=== PATIENT | female | born 1970 | race Caucasian/White ===

== ENCOUNTER 2020-09-26 17:31 | Outpatient (REF) | payer OTHER, SELFPAY ==
[2020-09-26 22:08] LABS: Abs Immature Grans 0.03 10^3/uL (0.0-0.06); Absolute Basophil Count 0.06 10^3/uL (0.0-0.2); Absolute Lymphocyte Count 2.97 10^3/uL (1.2-3.4); Absolute Monocyte Count 0.51 10^3/uL (0.1-0.8); Absolute Neutrophil Count 5.63 10^3/uL (1.2-6.7); Basophils % 0.6; Eosinophils % 2.1; HCT 43.7 % (36.0-46.0); HGB 14.4 g/dL (11.2-15.7); Immature Grans % 0.3; Lymphocytes % 31.6; MCH 29.1 pg (27.0-33.0); MCV 88.5 fL (80-95); MPV 12.7 fL (8.0-11.0); Monocytes % 5.4; Nucleated RBC 0 %; Platelet Count 246 10^3/uL (130-400); RBC 4.94 10^6/uL (3.93-5.22); RDW 12.6 % (11.7-14.6); RDW-SD 40.9 fL
[2020-09-26 22:21] LABS: Hemoglobin A1C 5.8 % (<5.7)
[2020-09-26 22:29] LABS: ALT 36 U/L (14-59); AST 21 U/L (15-37); Albumin 3.9 g/dL (3.4-5.0); Alkaline Phosphatase 86 U/L (46-116); Anion Gap 10.9 mmol/L (3-11); BUN 10 mg/dL (7-18); Bilirubin, Total 0.4 mg/dL (0.2-1.0); CO2 26.1 mmol/L (21.0-32.0); CREATININE 0.9 mg/dL (0.55-1.02); Calcium 8.9 mg/dL (8.5-10.1); Calculated LDL 166 mg/dL (<100); Chloride 106 mmol/L (98-107); Cholesterol 239 mg/dL (<200); Glucose 84 mg/dL (74-106); HDL Cholesterol 44 mg/dL (40-60); Potassium 4.1 mmol/L (3.5-5.1); Sodium 143 mmol/L (136-145); TSH (W/Ref FT4) 2.18 uIU/mL (0.36-3.74); Total Protein 7.6 g/dL (6.4-8.2); Triglyceride 148 mg/dL (<150)
[2020-09-28 10:32] LABS: Hepatitis C Ab w Rflx HCV PCR Negative (Negative)
[2020-09-28 10:40] LABS: HIV-1/2 Ag & Ab Screen Negative (Negative)
== END 2020-09-26 17:32 | disposition home or self-care (01) ==
LOC: NCHCN 17:31
PROVIDERS: PCP Family Medicine; Visit Provider Nurse Practitioner Family
DX: Z00.00 Encounter for general adult medical examination without abnormal findings (principal); R63.5 Abnormal weight gain; Z11.4 Encounter for screening for human immunodeficiency virus [HIV]; Z13.1 Encounter for screening for diabetes mellitus; Z11.59 Encounter for screening for other viral diseases; Z13.220 Encounter for screening for lipoid disorders
CPT/HCPCS: 80053; 80061; 86803; 87389; 83036; 84443; 85025

== ENCOUNTER 2020-12-12 21:57 | Outpatient (REF) | payer OTHER, SELFPAY ==
[2020-12-12 22:18] LABS: Anion Gap 9.9 mmol/L (3-11); BUN 8 mg/dL (7-18); CO2 27.1 mmol/L (21.0-32.0); CREATININE 0.9 mg/dL (0.55-1.02); Calcium 9.1 mg/dL (8.5-10.1); Chloride 105 mmol/L (98-107); Glucose 85 mg/dL (74-106); Potassium 4.1 mmol/L (3.5-5.1); Sodium 142 mmol/L (136-145)
== END 2020-12-12 21:58 | disposition home or self-care (01) ==
LOC: NCHCN 21:57
PROVIDERS: PCP Family Medicine; Visit Provider Nurse Practitioner Family
DX: R03.0 Elevated blood-pressure reading, without diagnosis of hypertension (principal)
CPT/HCPCS: 80048

== ENCOUNTER 2021-02-14 19:30 | Outpatient (REF) | payer OTHER, SELFPAY ==
[2021-02-14 22:28] LABS: Anion Gap 10.1 mmol/L (3-11); BUN 15 mg/dL (7-18); CO2 28.9 mmol/L (21.0-32.0); CREATININE 0.9 mg/dL (0.55-1.02); Calcium 9.2 mg/dL (8.5-10.1); Chloride 103 mmol/L (98-107); Folate > 20.0 ng/mL (8.6-20.0); Glucose 94 mg/dL (74-106); Potassium 3.7 mmol/L (3.5-5.1); Sodium 142 mmol/L (136-145); Vitamin B12 421 pg/mL (193-986)
== END 2021-02-14 19:31 | disposition home or self-care (01) ==
LOC: NCHCN 19:30
PROVIDERS: PCP Family Medicine; Referring Provider Nurse Practitioner Family; Visit Provider Nurse Practitioner Family
DX: I10 Essential (primary) hypertension (principal); G62.9 Polyneuropathy, unspecified
CPT/HCPCS: 80048; 82607; 82746

== ENCOUNTER 2021-07-04 16:47 | Outpatient (REF) | payer OTHER, SELFPAY ==
[2021-07-04 15:33] LABS: Hemoglobin A1C 5.9 % (<5.7)
[2021-07-04 15:37] LABS: ALT 25 U/L (14-59); AST 15 U/L (15-37); Albumin 3.7 g/dL (3.4-5.0); Alkaline Phosphatase 80 U/L (46-116); Anion Gap 9.3 mmol/L (3-11); BUN 11 mg/dL (7-18); Bilirubin, Total 0.4 mg/dL (0.2-1.0); CO2 27.7 mmol/L (21.0-32.0); CREATININE 0.9 mg/dL (0.55-1.02); Chloride 103 mmol/L (98-107); Glucose 98 mg/dL (74-106); Potassium 3.9 mmol/L (3.5-5.1); Sodium 140 mmol/L (136-145); Total Protein 7.2 g/dL (6.4-8.2)
[2021-07-06 09:13] LABS: IgA 1110 mg/dL (85-499); Interpretation (See Note); Tissue Transglutaminase IgA <1.2 U/mL (<4.0)
== END 2021-07-04 16:48 | disposition home or self-care (01) ==
LOC: NCHCN 16:47
PROVIDERS: PCP Family Medicine; Visit Provider Family Medicine
DX: R73.03 Prediabetes (principal); K59.09 Other constipation
CPT/HCPCS: 80053; 82784; 83516; 83036

== ENCOUNTER 2021-07-31 12:44 | Outpatient (REF) | payer OTHER, SELFPAY ==
[2021-08-01 09:43] LABS: IgA 1107 mg/dL (85-499)
== END 2021-07-31 12:45 | disposition home or self-care (01) ==
LOC: NCHCN 12:44
PROVIDERS: PCP Family Medicine; Visit Provider Family Medicine
DX: K59.09 Other constipation (principal); Z00.01 Encounter for general adult medical examination with abnormal findings
CPT/HCPCS: 82784

== ENCOUNTER 2021-08-04 20:51 | Outpatient (REF) | payer OTHER, SELFPAY ==
[2021-08-04 21:45] LABS: C-Reactive Protein 0.11 mg/dL (0.0-0.3); TSH (W/Ref FT4) 1.07 uIU/mL (0.36-3.74)
[2021-08-04 21:53] LABS: Abs Immature Grans 0.03 10^3/uL (0.0-0.06); Absolute Basophil Count 0.06 10^3/uL (0.0-0.2); Absolute Eosinophil Count 0.13 10^3/uL (0.0-0.7); Absolute Lymphocyte Count 2.78 10^3/uL (1.2-3.4); Absolute Neutrophil Count 5.35 10^3/uL (1.2-6.7); Basophils % 0.7; Eosinophils % 1.5; HCT 48.1 % (36.0-46.0); HGB 15.8 g/dL (11.2-15.7); Immature Grans % 0.3; Lymphocytes % 31.8; MCH 29.5 pg (27.0-33.0); MCHC 32.8 % (32.0-36.0); MCV 89.7 fL (80-95); MPV 13.7 fL (8.0-11.0); Monocytes % 4.6; Neutrophils % 61.1; Nucleated RBC 0 %; Platelet Count 256 10^3/uL (130-400); RBC 5.36 10^6/uL (3.93-5.22); RDW 12.9 % (11.7-14.6); RDW-SD 42.5 fL; WBC 8.75 10^3/uL (4.4-10.8)
[2021-08-04 22:02] LABS: Diff Comment Agrees w/ Instrument; RBC Morphology Normal
[2021-08-06 16:24] LABS: Rheumatoid Factor <8.6 IU/mL (<12.0)
[2021-08-07 10:51] LABS: HIV-1/2 Ag & Ab Screen Negative (Negative)
[2021-08-07 10:52] LABS: Cyclic Citrullinated Peptide <2.5 U/mL (<5.0)
[2021-08-07 12:49] LABS: HCV RNA Qualitative Undetected (Undetected)
[2021-08-07 13:27] LABS: ANA Interpretation Negative (Negative)
== END 2021-08-04 20:52 | disposition home or self-care (01) ==
LOC: NCHCN 20:51
PROVIDERS: PCP Family Medicine; Visit Provider Family Medicine
DX: R53.83 Other fatigue (principal); I10 Essential (primary) hypertension; R79.89 Other specified abnormal findings of blood chemistry; Z11.4 Encounter for screening for human immunodeficiency virus [HIV]; Z11.59 Encounter for screening for other viral diseases; Z78.0 Asymptomatic menopausal state
CPT/HCPCS: 86200; 87389; 87522; 84443; 85025; 86038; 86140; 86431

== ENCOUNTER 2021-08-12 10:35 | Emergency (ER) | payer OTHER, SELFPAY ==
[2021-08-12 10:40] VITALS: BP 161/61; PULSE 84; RESP 16; TEMP 36.4; O2SAT 97
[2021-08-12 10:52] LABS: Bilirubin Negative (Negative); Blood Negative (Negative); Clarity Clear (Clear); Glucose Negative (Negative); Ketones Negative (Negative); Leukocyte Esterase Negative (Negative); Nitrite Negative (Negative); Specific Gravity 1.025 (1.005-1.025); Urobilinogen 0.2 EU/dL (Up TO 0.2)
[2021-08-12 11:11] LABS: Abs Immature Grans 0.01 10^3/uL (0.0-0.06); Absolute Basophil Count 0.06 10^3/uL (0.0-0.2); Absolute Eosinophil Count 0.16 10^3/uL (0.0-0.7); Absolute Lymphocyte Count 2.48 10^3/uL (1.2-3.4); Absolute Monocyte Count 0.36 10^3/uL (0.1-0.8); Absolute Neutrophil Count 3.93 10^3/uL (1.2-6.7); Basophils % 0.9; Eosinophils % 2.3; HCT 44.9 % (36.0-46.0); HGB 14.4 g/dL (11.2-15.7); Immature Grans % 0.1; Lymphocytes % 35.4; MCHC 32.1 % (32.0-36.0); MCV 90.5 fL (80-95); MPV 10.8 fL (8.0-11.0); Monocytes % 5.1; Neutrophils % 56.2; Nucleated RBC 0 %; Platelet Count 227 10^3/uL (130-400); RBC 4.96 10^6/uL (3.93-5.22); RDW 12.7 % (11.7-14.6); RDW-SD 42.4 fL
--- NOTE | 2021-08-12 11:15 | RT.EKG_ITS ---
APPROVED REPORT Exam: Resting ECG Reason for Exam: sob Patient Location: E HR:74 bpm ECG Measurements Heart Rate 74 AXIS OK 201 P 41 QRSd 104 QRS 93 QT 409 T 71 QTc 453 Conclusion Sinus rhythm...normal P axis, V-rate 60- 99 sinus rhythm, normal axis, non ischemic
[2021-08-12] MEDS: Normal Saline 1,000 ML 1000 ML IV (11:25)
[2021-08-12 11:32] LABS: ALT 34 U/L (14-59); AST 19 U/L (15-37); Albumin 3.4 g/dL (3.4-5.0); Alkaline Phosphatase 85 U/L (46-116); Anion Gap 7.4 mmol/L (3-11); BUN 10 mg/dL (7-18); Bilirubin, Total 0.4 mg/dL (0.2-1.0); CO2 28.6 mmol/L (21.0-32.0); CREATININE 1.1 mg/dL (0.55-1.02); Calcium 8.6 mg/dL (8.5-10.1); Chloride 105 mmol/L (98-107); Estimated GFR 52.16 (mL/min/1.73m2); Glucose 134 mg/dL (74-106); Lipase 95 U/L (73-393); Potassium 3.6 mmol/L (3.5-5.1); Sodium 141 mmol/L (136-145); Total Protein 7.3 g/dL (6.4-8.2)
--- NOTE | 2021-08-12 11:33 | ED.GENADUL_ITS ---
Discharge Plan Disposition Patient Disposition: HOME Condition: Stable Discharge Details Clinical Impression: Abdominal pain Primary Care Provider: Melani Gamino ED Provider: Waqar Willoughby Home Meds and New Rx's Prescriptions: Continued magnesium oxide 400 mg magnesium capsule 400 mg PO BID 0RF glucosamine HCl 1,500 mg tablet 1,500 mg PO DAILY 0RF Rx Instructions: administer with a meal [id number] Tablet 1 tab PO DAILY 0RF hydrochlorothiazide 12.5 mg Tablet 12.5 mg PO DAILY 0RF Discharge Instructions Instructions: Abdominal Pain (ED) Additional Instructions: Work-up in the ER does not reveal any obvious emergent process or clear etiology of your symptoms. I do recommend taking a stool softener daily. Plenty of fluids to avoid dehydration. Please watch for new or worsening symptoms and return to the ER for any concerns. I do recommend contacting your primary care provider on Saturday to discuss your ER visit need for outpatient reevaluation. Discharge Data Discharge Date/Time-TO BE ENTERED AT DEPARTURE: 08/12/21 14:35 Medical Decision Making This is a 51-year-old female who presents to the ER reporting ongoing symptoms for approximately 2 months, worsening abdominal pain over the past couple of days, chronic constipation, and multitude of complaints that across multiple review of systems. She is in the process of trying to have this evaluated through her primary care provider, concern for possible autoimmune disorder but no clear etiology. Clinically she appears well, nontoxic, hemodynamically stable, abdomen is soft, nonsurgical, in no acute distress. Plan is to obtain IV access, give IV fluid and will obtain medical screening laboratory values including EKG and troponin given her shortness of breath, a Covid swab, and plan to obtain CT imaging of her abdomen pelvis for ongoing discomfort. Patient is comfortable this plan and has no additional questions or concerns at this time. Laboratory values reveal no evidence of leukocytosis or anemia. D-dimer is unremarkable at 401. Will not pursue CTA of the chest. Lactate is minimally elevated at 1.6, patient given a second liter, at this time lactated Ringer's. Electrolytes unremarkable, creatinine one-point motor GFR 2.16. LFTs unremarkable. Troponin less than 50, BNP 56. Urinalysis unremarkable. Covid negative. Laboratory values are grossly unremarkable. No clear etiology of her ongoing symptoms. Patient was witnessed ambulating to the restroom multiple times without difficulty. Awaiting CT. CT imaging of the abdomen and pelvis are unremarkable. Discussed benign laboratory values and CT imaging with patient. She is relieved although frustrated as there is no clear etiology of her ongoing symptoms. We d id discuss with her chronic constipation that she may want to increase her stool softener to a daily use. Standard discharge and return precautions were provided. Lastly, we discussed the importance of contacting her primary care provider to discuss her ER evaluation, the need for outpatient reevaluation and the potential for referral to specialty clinic if her symptoms are to persist and there is no clear etiology. This documentation was generated using [employer] system, please disregard any oddities of phrase or misspellings. Medical Records Medical records reviewed: Yes I reviewed the patient's medical records. Imaging Data Radiologic Study: Attestation: I personally reviewed and interpreted this imaging study as follows: Imaging: CT Scan Radiologist's impression: Exam(s) CT ABDOMEN PELVIS W EXAM: CT ABDOMEN PELVIS W CLINICAL HISTORY: L sided pain, constipation. TECHNIQUE: Imaging Protocol: Axial computed tomography images with coronal and sagittal reformatted images were created and reviewed CONTRAST MATERIAL: Intravenous: Omnipaque 100cc Oral: None COMPARISON: No exams were available for comparison FINDINGS: VISUALIZED LUNG BASES: No nodules nor pleural effusions evident. ABDOMEN: There is no ascites. LIVER: There are no focal hepatic lesions evident . GALLBLADDER/BILIARY: No obvious gallbladder pathology. CBD is not dilated. PANCREAS: No evidence of pancreatic mass nor dilatation of the pancreatic duct. SPLEEN: Spleen size is normal. There is a peripheral subcapsular 7 millimeter hypodensity in the spleen which is probably a small hemangioma. (Series 4/image 14). Splenic and portal veins are patent. ADRENALS: There are no significant adrenal masses. KIDNEYS:No cysts evident. No solid renal masses. No calculi nor hydronephrosis.. ABDOMINAL AORTA: Abdominal aorta is not enlarged. LYMPH NODES:There is no retroperitoneal nor paraaortic adenopathy. ABDOMINAL WALL: No evidence of significant anterior abdominal wall nor inguinal hernia. GI: There is no evidence of bowel obstruction, free air, nor abscess. PELVIS: GI: No evidence of appendicitis.There are few scattered sigmoid diverticuli but no evidence of obvious acute diverticulitis. LYMPH NODES: There is no intrapelvic nor inguinal adenopathy. REPRODUCTIVE: Uterus and adnexal regions appear unremarkable. No free fluid URINARY BLADDER: No calculi nor obvious masses evident OSSEOUS: No significant osseous lesions. IMPRESSION: 1. No significant acute findings in the abdomen and pelvis. No evidence of appendicitis. 2. Few scattered sigmoid diverticulae but no evidence of acute diverticulit Lab Data Lab results reviewed: Yes I reviewed the patient's lab results. Labs: Laboratory Tests Range/Units 08/12/21 08/12/21 08/12/21 10:42 10:55 10:55 WBC (4.4-10.8) 10^3/uL 7.00 RBC (3.93-5.22) 10^6/uL 4.96 Hgb (11.2-15.7) g/dL 14.4 Hct (36.0-46.0) % 44.9 MCV (80-95) fL 90.5 MCH (27.0-33.0) pg 29.0 MCHC (32.0-36.0) % 32.1 RDW (11.7-14.6) % 12.7 Plt Count (130-400) 10^3/uL 227 MPV (8.0-11.0) fL 10.8 Immature Gran % 0.1 Neutrophils % 56.2 Lymphocytes % 35.4 Monocytes % 5.1 Eosinophils % 2.3 Basophils % 0.9 Nucleated RBC % % 0 Absolute Neutrophils (1.2-6.7) 10^3/uL 3.93 Absolute Lymphocytes (1.2-3.4) 10^3/uL 2.48 Absolute Monocytes (0.1-0.8) 10^3/uL 0.36 Absolute Eosinophils (0.0-0.7) 10^3/uL 0.16 Absolute Basophils (0.0-0.2) 10^3/uL 0.06 D-Dimer (<500) ng/mlFEU VBG Lactate (0.6-1.4) mmol/L Sodium (136-145) mmol/L 141 Potassium (3.5-5.1) mmol/L 3.6 Chloride (98-107) mmol/L 105 Carbon Dioxide (21.0-32.0) mmol/L 28.6 Anion Gap (3-11) mmol/L 7.4 BUN (7-18) mg/dL 10 Creatinine (0.55-1.02) mg/dL 1.1 H Estimated GFR/1.73 m2 (mL/min/1.73m2) 52.16 Glucose (74-106) mg/dL 134 H Calcium (8.5-10.1) mg/dL 8.6 Total Bilirubin (0.2-1.0) mg/dL 0.4 AST (15-37) U/L 19 ALT (14-59) U/L 34 Alkaline Phosphatase (46-116) U/L 85 Troponin I (<or=60) ng/L NT-Pro-B Natriuret Pep (<300) pg/mL Total Protein (6.4-8.2) g/dL 7.3 Albumin (3.4-5.0) g/dL 3.4 Lipase (73-393) U/L 95 Urine Color (Yellow) Yellow Urine Clarity (Clear) Clear Urine pH (5-8) 6.0 Ur Specific [place] (1.005-1.025) 1.025 Urine Protein (Negative) mg/dL Negative Urine Ketones (Negative) mg/dL Negative Urine Blood (Negative) Negative Urine Nitrite (Negative) Negative Urine Bilirubin (Negative) Negative Urine Urobilinogen (Up TO 0.2) EU/dL 0.2 Ur Leukocyte Esterase (Negative) Negative Urine Glucose (Negative) mg/dL Negative COVID-19 Source SARS-CoV-2 (PCR) (Negative) Range/Units 08/12/21 08/12/21 08/12/21 10:55 11:38 11:38 WBC (4.4-10.8) 10^3/uL RBC (3.93-5.22) 10^6/uL Hgb (11.2-15.7) g/dL Hct (36.0-46.0) % MCV (80-95) fL MCH (27.0-33.0) pg MCHC (32.0-36.0) % RDW (11.7-14.6) % Plt Count (130-400) 10^3/uL MPV (8.0-11.0) fL Immature Gran % Neutrophils % Lymphocytes % Monocytes % Eosinophils % Basophils % Nucleated RBC % % Absolute Neutrophils (1.2-6.7) 10^3/uL Absolute Lymphocytes (1.2-3.4) 10^3/uL Absolute Monocytes (0.1-0.8) 10^3/uL Absolute Eosinophils (0.0-0.7) 10^3/uL Absolute Basophils (0.0-0.2) 10^3/uL D-Dimer (<500) ng/mlFEU 401 VBG Lactate (0.6-1.4) mmol/L 1.6 H Sodium (136-145) mmol/L Potassium (3.5-5.1) mmol/L Chloride (98-107) mmol/L Carbon Dioxide (21.0-32.0) mmol/L Anion Gap (3-11) mmol/L BUN (7-18) mg/dL Creatinine (0.55-1.02) mg/dL Estimated GFR/1.73 m2 (mL/min/1.73m2) Glucose (74-106) mg/dL Calcium (8.5-10.1) mg/dL Total Bilirubin (0.2-1.0) mg/dL AST (15-37) U/L ALT (14-59) U/L Alkaline Phosphatase (46-116) U/L Troponin I (<or=60) ng/L < 50 NT-Pro-B Natriuret Pep (<300) pg/mL 56 Total Protein (6.4-8.2) g/dL Albumin (3.4-5.0) g/dL Lipase (73-393) U/L Urine Color (Yellow) Urine Clarity (Clear) Urine pH (5-8) Ur Specific [place] (1.005-1.025) Urine Protein (Negative) mg/dL Urine Ketones (Negative) mg/dL Urine Blood (Negative) Urine Nitrite (Negative) Urine Bilirubin (Negative) Urine Urobilinogen (Up TO 0.2) EU/dL Ur Leukocyte Esterase (Negative) Urine Glucose (Negative) mg/dL COVID-19 Source SARS-CoV-2 (PCR) (Negative) Range/Units 08/12/21 11:40 WBC (4.4-10.8) 10^3/uL RBC (3.93-5.22) 10^6/uL Hgb (11.2-15.7) g/dL Hct (36.0-46.0) % MCV (80-95) fL MCH (27.0-33.0) pg MCHC (32.0-36.0) % RDW (11.7-14.6) % Plt Count (130-400) 10^3/uL MPV (8.0-11.0) fL Immature Gran % Neutrophils % Lymphocytes % Monocytes % Eosinophils % Basophils % Nucleated RBC % % Absolute Neutrophils (1.2-6.7) 10^3/uL Absolute Lymphocytes (1.2-3.4) 10^3/uL Absolute Monocytes (0.1-0.8) 10^3/uL Absolute Eosinophils (0.0-0.7) 10^3/uL Absolute Basophils (0.0-0.2) 10^3/uL D-Dimer (<500) ng/mlFEU VBG Lactate (0.6-1.4) mmol/L Sodium (136-145) mmol/L Potassium (3.5-5.1) mmol/L Chloride (98-107) mmol/L Carbon Dioxide (21.0-32.0) mmol/L Anion Gap (3-11) mmol/L BUN (7-18) mg/dL Creatinine (0.55-1.02) mg/dL Estimated GFR/1.73 m2 (mL/min/1.73m2) Glucose (74-106) mg/dL Calcium (8.5-10.1) mg/dL Total Bilirubin (0.2-1.0) mg/dL AST (15-37) U/L ALT (14-59) U/L Alkaline Phosphatase (46-116) U/L Troponin I (<or=60) ng/L NT-Pro-B Natriuret Pep (<300) pg/mL Total Protein (6.4-8.2) g/dL Albumin (3.4-5.0) g/dL Lipase (73-393) U/L Urine Color (Yellow) Urine Clarity (Clear) Urine pH (5-8) Ur Specific [place] (1.005-1.025) Urine Protein (Negative) mg/dL Urine Ketones (Negative) mg/dL Urine Blood (Negative) Urine Nitrite (Negative) Urine Bilirubin (Negative) Urine Urobilinogen (Up TO 0.2) EU/dL Ur Leukocyte Esterase (Negative) Urine Glucose (Negative) mg/dL COVID-19 Source Nasal/Nares SARS-CoV-2 (PCR) (Negative) Negative ECG Data Attestation: I personally reviewed and interpreted this ECG (s) as follows: Interpretation: Sinus rhythm, ventricular rate of 74, no STEMI HPI General Mode of arrival: ambulatory . Date/Time Provider Initiated Documentation: 08/12/21 10:52 . Limitations to Documentation: no limitations . Information obtained by: patient . HPI Narrative: This is a 51-year-old female, denies significant past medical history, presents to the ER today with a multitude of complaints but primarily complaining of left-sided abdominal pain acute on chronic for the past 2 months, worse over the past couple of days. Over the past 2 months she reports intermittent headaches, occasional shortness of breath, left-sided abdominal pain and generalized weakness, chronic constipation, going up to 3 weeks without a bowel movement, reports feeling mentally foggy, occasionally having tingling in her feet. She denies recent illness or trauma, fever, neck pain, visual changes, chest pain, cough, nausea, vomiting, change in appetite, constipation or black tarry stools or bright red blood in her stools. Patient states that she has been seen by her primary care provider multiple times, had laboratories drawn, feels as though there may be an autoimmune etiology but no clear diagnosis thus far. She states that she takes stool softeners once a week or so. She also reports that her hands are slightly more red than usual which typically indicates that she is dehydrated and is requesting IV fluid. Related Data Home Medications Medication Instructions Recorded Confirmed glucosamine HCl 1,500 mg tablet 1,500 mg PO DAILY 10/27/20 08/12/21 magnesium oxide 400 mg PO BID 10/27/20 08/12/21 hydrochlorothiazide 12.5 mg tablet 12.5 mg PO DAILY 08/12/21 08/12/21 [id number]-[id number] tablet 1 tab PO DAILY 08/12/21 08/12/21 Allergies Allergy/AdvReac Type Severity Reaction Status Date / Time lisinopril Allergy Severe unknown Verified 08/12/21 10:47 phenazopyridine Allergy Severe unknown Verified 08/12/21 10:47 [From Pyridium] [email or web address] [From Myrbetriq] Allergy Intermediate unknown Verified 08/12/21 10:47 gabapentin [From Neurontin] Allergy Mild unknown Verified 08/12/21 10:47 penicillin V Allergy Mild unknown Verified 08/12/21 10:47 pregabalin [From Lyrica] Allergy Mild unknown Verified 08/12/21 10:47 General Stated Complaint: Abd Prob DEREK: 3 Review of Systems Constitutional Constitutional: Reports fatigue, Denies fever(s), Reports headache(s) and Denies weakness ENT Ears, Nose, Mouth, and Throat: Reports headache(s) and Denies neck pain Cardiovascular Cardiovascular: Denies chest pain and Reports dyspnea Respiratory Respiratory: Denies cough and Reports dyspnea Gastrointestinal Gastrointestinal: Reports abdominal pain, Denies melena, Denies hematochezia, Reports constipation, Denies diarrhea, Denies nausea and Denies vomiting Genitourinary Genitourinary: Denies dysuria Musculoskeletal Musculoskeletal: Denies back pain, Denies neck pain, Denies numbness and Denies tingling Integumentary/Breasts Skin/Breast: Denies rash Neurologic Neurologic: Reports headache(s), Denies numbness, Denies tingling and Denies weakness Endocrine Endocrine: Reports fatigue Hematologic/Lymphatic Hematologic/Lymphatic: Denies easy bleeding and Denies easy bruising PFSH All Active Problems Abdominal pain (Acute) Neuropathy (Acute) Constipation (Acute) Hot flashes (Acute) Perimenopausal (Acute) Abnormal weight gain (Acute) Interstitial cystitis (Acute) Mixed anxiety and depressive disorder (Acute) Screening for colon cancer (Acute) Medical History Plantar wart, left foot Surgical History History of cervical discectomy Social History Smoking/Tobacco Use Status: Never Smoking risk assessment performed?: Yes Substance use type: does not use Exam Const General: cooperative, healthy appearing, comfortable and no acute distress Orientation: alert, awake and oriented x3 HENMT Head: normal to inspection, normocephalic and atraumatic Face and sinus: normal facial exam Mouth: moist mucous membranes Throat: posterior oropharynx normal Eyes General: appearance normal, both eyes and all related structures Conjunctivae: conjunctivae normal Neck Neck: normal visual inspection, full ROM, no meningeal signs, trachea midline and supple Resp Effort & Inspection: normal respiratory effort and able to speak in complete sentences Auscultation: clear to auscultation bilaterally Cardio Rate: regular rate Rhythm: regular rhythm GI Inspection: normal to inspection Palpation: soft, not firm, no guarding, no pulsatile masses and nontender Auscultation: normal bowel sounds Back/Spine/Pelvis Back: No back tenderness Skin General skin exam: no rashes or lesions noted Neuro General: patient alert, patient awake, moves all extremities and no focal motor deficits Cognition: normal cognition Speech: speech normal Gait: normal gait Motor: muscle tone normal throughout Sensory Exam: no sensory deficits noted Extrem General: normal to inspection, full ROM, capillary refill normal, no pedal edema and no calf tenderness Psych Appearance: grossly normal Mental Status: mental status grossly normal Course Vital Signs Vital signs: Vital Signs Temperature 36.4 C L 08/12/21 10:40 Pulse 84 08/12/21 10:40 Respiratory Rate 16 08/12/21 10:40 Blood Pressure 161/61 H 08/12/21 10:40 Pulse Oximetry 97 08/12/21 10:40 Temperature 36.4 C L 08/12/21 10:40 Temperature Source Skin 08/12/21 10:40 Pulse 84 08/12/21 10:40 Respiratory Rate 16 08/12/21 10:40 Respiratory Effort 08/12/21 10:40 Blood Pressure 161/61 H 08/12/21 10:40 Blood Pressure Position Supine 08/12/21 10:40 Pulse Oximetry 97 08/12/21 10:40 Oxygen Delivery Method Room Air 08/12/21 10:40 Oxygen Flow Rate 0 08/12/21 10:40 Pain Level 6 08/12/21 10:40 Lab/Test Results Lab/Test Results: Laboratory Tests Range/Units 08/12/21 08/12/21 10:42 10:55 WBC (4.4-10.8) 10^3/uL 7.00 RBC (3.93-5.22) 10^6/uL 4.96 Hgb (11.2-15.7) g/dL 14.4 Hct (36.0-46.0) % 44.9 MCV (80-95) fL 90.5 MCH (27.0-33.0) pg 29.0 MCHC (32.0-36.0) % 32.1 RDW (11.7-14.6) % 12.7 Plt Count (130-400) 10^3/uL 227 MPV (8.0-11.0) fL 10.8 Immature Gran % 0.1 Neutrophils % 56.2 Lymphocytes % 35.4 Monocytes % 5.1 Eosinophils % 2.3 Basophils % 0.9 Nucleated RBC % % 0 Absolute Neutrophils (1.2-6.7) 10^3/uL 3.93 Absolute Lymphocytes (1.2-3.4) 10^3/uL 2.48 Absolute Monocytes (0.1-0.8) 10^3/uL 0.36 Absolute Eosinophils (0.0-0.7) 10^3/uL 0.16 Absolute Basophils (0.0-0.2) 10^3/uL 0.06 Urine Color (Yellow) Yellow Urine Clarity (Clear) Clear Urine pH (5-8) 6.0 Ur Specific [place] (1.005-1.025) 1.025 Urine Protein (Negative) mg/dL Negative Urine Ketones (Negative) mg/dL Negative Urine Blood (Negative) Negative Urine Nitrite (Negative) Negative Urine Bilirubin (Negative) Negative Urine Urobilinogen (Up TO 0.2) EU/dL 0.2 Ur Leukocyte Esterase (Negative) Negative Urine Glucose (Negative) mg/dL Negative POC- Test(urine) Negative
[2021-08-12 11:46] LABS: Lactate 1.6 mmol/L (0.6-1.4)
[2021-08-12 11:51] LABS: NT-proBNP 56 pg/mL (<300); Troponin I < 50 ng/L (<or=60)
[2021-08-12 12:03] LABS: Source Nasal/Nares
--- NOTE | 2021-08-12 12:15 | DI.CT_ITS ---
Exam(s) CT ABDOMEN PELVIS W EXAM: CT ABDOMEN PELVIS W CLINICAL HISTORY: L sided pain, constipation. TECHNIQUE: Imaging Protocol: Axial computed tomography images with coronal and sagittal reformatted images were created and reviewed CONTRAST MATERIAL: Intravenous: Omnipaque 100cc Oral: None COMPARISON: No exams were available for comparison FINDINGS: VISUALIZED LUNG BASES: No nodules nor pleural effusions evident. ABDOMEN: There is no ascites. LIVER: There are no focal hepatic lesions evident . GALLBLADDER/BILIARY: No obvious gallbladder pathology. CBD is not dilated. PANCREAS: No evidence of pancreatic mass nor dilatation of the pancreatic duct. SPLEEN: Spleen size is normal. There is a peripheral subcapsular 7 millimeter hypodensity in the spl een which is probably a small hemangioma. (Series 4/image 14). Splenic and portal veins are patent. ADRENALS: There are no significant adrenal masses. KIDNEYS:No cysts evident. No solid renal masses. No calculi nor hydronephrosis.. ABDOMINAL AORTA: Abdominal aorta is not enlarged. LYMPH NODES:There is no retroperitoneal nor paraaortic adenopathy. ABDOMINAL WALL: No evidence of significant anterior abdominal wall nor inguinal hernia. GI: There is no evidence of bowel obstruction, free air, nor abscess. PELVIS: GI: No evidence of appendicitis.There are few scattered sigmoid diverticuli but no evidence of obviou s acute diverticulitis. LYMPH NODES: There is no intrapelvic nor inguinal adenopathy. REPRODUCTIVE: Uterus and adnexal regions appear unremarkable. No free fluid URINARY BLADDER: No calculi nor obvious masses evident OSSEOUS: No significant osseous lesions. IMPRESSION: 1. No significant acute findings in the abdomen and pelvis. No evidence of appendicitis. 2. Few scattered sigmoid diverticulae but no evidence of acute diverticulitis 3. 4. RADIATION DOSE DELIVERED: 1,110.02mGy.cm Total DLP DATA REPOSITORY: All CT scans at this facility are submitted to the National Radiology Data Registry (NRDR) Dose Index Registry (DIR) with the [employer] ([employer]). RADIATION OPTIMIZATION: All CT scans at this facility use at least one of these dose optimization te chniques: automated exposure control; mA and/or kV adjustment per patient size (includes targeted exa ms where dose is matched to clinical indication); or iterative reconstruction.
[2021-08-12] MEDS: Lactated Ringers 1,000 ML 1000 ML IV (12:20)
[2021-08-12 12:21] LABS: D-Dimer 401 ng/mlFEU (<500)
[2021-08-12 12:44] LABS: COVID-19 PCR Negative (Negative)
[2021-08-12] MEDS: Normal Saline Flush 10 ML SYR IVP (13:22)
--- NOTE | 2021-08-12 13:58 | DI.VRAD_ITS ---
PROCEDURE INFORMATION: Exam: CT Abdomen And Pelvis With Contrast Exam date and time: 08/12/2021 1:15 PM Age: 51 years old Clinical indication: Other: Left sided pain, constipation TECHNIQUE: Imaging protocol: Computed tomography of the abdomen and pelvis with contrast. Contrast material: OMNIPAQUE 350; Contrast volume: 100 ml; Contrast route: INTRAVENOUS (IV); COMPARISON: No relevant prior studies available. FINDINGS: Liver: Normal. No mass. Gallbladder and bile ducts: Normal. No calcified stones. No ductal dilation. Pancreas: Normal. No ductal dilation. Spleen: Normal. No splenomegaly. Adrenal glands: Normal. No mass. Kidneys and ureters: Normal. No hydronephrosis. Stomach and bowel: Unremarkable. No obstruction. No mucosal thickening. No significant fecal loading. Appendix: No evidence of appendicitis. Intraperitoneal space: Unremarkable. No free air. No significant fluid collection. Vasculature: Unremarkable. No abdominal aortic aneurysm. Lymph nodes: Unremarkable. No enlarged lymph nodes. Urinary bladder: Unremarkable as visualized. Reproductive: Unremarkable as visualized. Bones/joints: Unremarkable. No acute fracture. Soft tissues: Unremarkable. IMPRESSION: No significant fecal loading. No acute abnormality. Dictated and Authenticated by: Adrianna Yanez MD. Ordering:NANCY Zavaleta MD
[2021-08-12 14:02] VITALS: BP 134/62; PULSE 68; RESP 20; TEMP 36.4; O2SAT 97
== END 2021-08-12 14:35 | disposition home or self-care (01) ==
PROVIDERS: Emergency Provider Physician Assistant; PCP Nurse Practitioner Family
DX: R10.9 Unspecified abdominal pain (principal); K59.09 Other constipation; R06.02 Shortness of breath; Z20.822 Contact with and (suspected) exposure to COVID-19
CPT/HCPCS: 36415; 80053; 81025; 83690; 87635; 93005; 96360; 96361; 99284; 99285; 74177; 81003; 83605; 83880; 84484; 85025; 85379; 93010

== ENCOUNTER 2021-08-23 02:54 | Outpatient (CLI) | payer OTHER, SELFPAY ==
[2021-08-23 10:24] LABS: Source Nasal/Nares
[2021-08-23 12:57] LABS: COVID-19 PCR Negative (Negative)
== END 2021-08-23 02:55 | disposition home or self-care (01) ==
PROVIDERS: PCP Nurse Practitioner Family; Visit Provider Surgery
DX: Z20.822 Contact with and (suspected) exposure to COVID-19 (principal)
CPT/HCPCS: 87635

== ENCOUNTER 2021-08-25 10:45 | Day surgery (SDC) | payer OTHER, SELFPAY ==
--- NOTE | 2021-08-24 15:15 | PDOC.DSDIS_ITS ---
Discharge Plan Disposition Patient Disposition: HOME Condition: Good Discharge Details Reason For Visit: stomach/colon scopes Attending Provider: Charity Hernandez Primary Care Provider: Melani Gamino Home Meds and New Rx's Prescriptions: Continued magnesium oxide 400 mg magnesium capsule 400 mg PO BID 0RF glucosamine HCl 1,500 mg tablet 1,500 mg PO DAILY 0RF Rx Instructions: administer with a meal owgyowlwnglj-orristsp-qouoyv Tablet 1 tab PO DAILY 0RF hydrochlorothiazide 12.5 mg Tablet 12.5 mg PO DAILY 0RF Discontinued bisacodyl [Dulcolax (bisacodyl)] 5 mg tablet,delayed release (DR/EC) 5 mg PO ONCE Qty: 4 0RF Rx Instructions: Take according to provider's instructions for colonoscopy prep. polyethylene glycol 3350 17 gram/dose powder 17 g PO ONCE Qty: 238 0RF Rx Instructions: To be taken as directed by prescriber's office for colonoscopy prep. Discharge Instructions Additional Instructions: [facility] Colonoscopy Post- Op Instructions Instructions for Everyone who is given Anesthesia: For your safety, please do the following for the next twenty-four (24) hours: *Do Not operate a motor vehicle (car, truck, motorcycle, etc.) *Do Not drink alcoholic beverages or use any recreational drugs for the first 24 hours or while taking pain medications. The medications in your body may have a reaction that can be dangerous. *Do Not make any important decisions or sign any important papers. Findings: EGD: small hiatal hernia/essentially normal colon: large polyp, otherwise normal -No ASA/NSAID's for 5 days expect some mild cramping may pass a small amount of blood w/ first BM. IF passing clots larger than you fist or doesn not stop- go to the ED. Follow up: 3 wks 1. No lifting over 20 pounds or strenuous activity for the first 24 hours after your procedure. After 24 hours there are no restrictions on your activity but you may feel fatigued for a few days. 2. After you arrive home you may have a light meal and return to your normal diet as you can tolerate it without feeling sick to your stomach. 3. You may have a bloated, gaseous feeling in your belly (abdomen) after a colonoscopy. Passing gas and belching will help. Walking or lying down on your l eft side with your knees flexed may relieve the discomfort. Call the office at [phone] (Office) or [phone] (Hospital) right away if you notice any of the following: a.Vomiting of blood or ?coffee ground stools?. b.Rectal bleeding 1Tbsp, blood clots or continuous bleeding. c.Severe belly (abdominal) pain. d.A hard distended belly (abdomen) and an inability to pass gas. 4. Please don?t expect to have a normal BM (bowel movement) for 2-3 days after your procedure. 5. If there are questions regarding the findings of your procedure, please contact your doctor 6. If you are unable to contact your doctor with a problem, contact the hospital at [phone]. 7. Continue all your regular medications unless directed otherwise. I understand the above instructions and have no questions. Signature of Patient or Adult Escort Name of Responsible Adult Escort Signature of Nurse Date/Time Activity:: see above Diet:: see above Discharge Orders Discharge Orders: Discharge Order (Routine); Ordered 08/24/21 Ordered By: Charity Hernandez
--- NOTE | 2021-08-24 15:16 | W.PM.ENDDOP ---
Date of service: 08/25/21 Time of Service: 12:37 Endoscopy Report DATE OF PROCEDURE: 08/25/21 PRE-OP DIAGNOSIS: abdominal pain/bloating/bx for celiac POST-OP DIAGNOSIS: other (mild duodenitis and small hiatal hernia) SURGEON: Charity Hernandez ANESTHESIA TYPE: General:No Airway PATHOLOGY: other COMPLICATIONS: None DISPOSITION: same day PREP: Miralax/Dulcolax PROCEDURE DESCRIPTION: After informed consent was obtained the patient was take to the procedure room and placed in a supine position. Monitors were applied and a time out was done. The patients name, date of , procedure type, allergies to medications and metal in their body was reviewed. A bite block was placed and the patient was sedated. Once sedated and comfortable the gastroscope was advanced through the oropharynx which was grossly normal into the esophagus. The proximal and mid-esophagus were mild feline eopsh. In the distal esophagus there was small hiatal hernia and irregularity at GE junction noted. The scope was advanced into the stomach and through the pylorus into the 3rd portion of the duodenum. The duodenum was noted to be mild irritation. Biopsies were done, all specimens are retrieved and no bleedinging is noted. The scope was retracted back into the stomach and biopsies were done to rule out H. pylori. There were no ulcers/gastritis. The scope was retroflexed. The cardia and fundus were noted to be normal. There 1cm a hiatal hernia noted. The scope was retracted back into the esophagus and biopsies were done of the GE junction to rule out Jarrett's. The Z line was irregular. The GE junction was at 38 cm. The scope was removed and the patient was woken up and taken back to [facility] in stable condition.
--- NOTE | 2021-08-24 15:17 | W.COLOREPORT ---
Colonoscopy Report Date of procedure: 08/25/21 Pre-op diagnosis general: CRC screen/hx of IBS-C Post-op diagnosis procedure note: other (lg polyps) Surgeon: Charity Hernandez Anesthesia Type: General:No Airway Estimated blood loss (mL): 1 Pathology: other Disposition: same day Prep: Miralax/Dulcolax Retraction Time: 15 mins Procedure Description: After informed consent was obtained the patient was taken to the procedure room and placed in a left decubitous position. Monitors were applied and a time out was done. The patients name, date of , procedure, allergies to medications and metal in their body was reviewed. The patient was then sedated. Once sedated and comfortable a rectal exam was done. External exam was normal. Internal exam revealed a normal sphincter tone and no palpable masses. The scope was then introduced and retrofelexed. No internal hemorrhoids were identified. The scope was then advanced to the cecum w/out difficulty. The TI and appendiceal orifice were identified. The prep was BBPS-3 in sigmoid/left adn transverse colon. BBPS-2 in right colon, for a total of 9. The scope was then slowly retracted over 15minutes back into the rectum. The colon is floppy and redundant. There are no AVM's or diverticula. The TI is intubated. The villous architecture appears preserved. Biopsies were taken in the terminal ileum, cecum, 80 cm, 60 cm, 30 cm in the rectum. There are no diverticula or AVMs visualized. She has a large polyp at 25 cm. This is removed with a hot snare and clips are applied. It is 1.5 cm and on a long stalk. The specimen is retrieved and no bleeding is noted. She has x2 small flat 5 mm polyps at 20 cm. These are removed with cold biopsy forcep. The scope was removed and the patient was woken up and taken back to [facility] day [facility] in stable condition. The patient tolerated the procedure well and there were no immediate complications. Follow up: The patient should follow up in 3 years unless they develop changes in bowel habits or other new gastrointestinal complaints.
[2021-08-25 11:01] VITALS: BP 145/70; PULSE 76; RESP 18; TEMP 36.5; O2SAT 98
[2021-08-25] MEDS: Lactated Ringers 1,000 ML 80 ML IV (11:12)
--- NOTE | 2021-08-25 11:18 | ANES.PREOP_ITS ---
General Info Date of Service Date Performed: 08/25/21 Height: 5 ft 6 in Weight: 85.8 kg Body Mass Index (BMI): 30.5 Surgical Procedure: Operation Date: 08/25/21 11:20 Proposed Procedure Side Surgeon p Colonoscopy/Gastroscopy w/Biopsies Charity Hernandez DO Meds Allergies and Home Medications Allergies Allergy/AdvReac Type Severity Reaction Status Date / Time lisinopril Allergy Severe unknown Verified 08/25/21 11:09 phenazopyridine Allergy Severe unknown Verified 08/25/21 11:09 [From Pyridium] [email or web address] [From Myrbetriq] Allergy Intermediate unknown Verified 08/25/21 11:09 gabapentin [From Neurontin] Allergy Mild unknown Verified 08/25/21 11:09 penicillin V Allergy Mild unknown Verified 08/25/21 11:09 pregabalin [From Lyrica] Allergy Mild unknown Verified 08/25/21 11:09 Home Medication Medication Instructions Recorded glucosamine HCl 1,500 mg tablet 1,500 mg PO DAILY 10/27/20 magnesium oxide 400 mg PO BID 10/27/20 hydrochlorothiazide 12.5 mg tablet 12.5 mg PO DAILY 08/12/21 wmjyg[address]y-nwvefges-pscnvb tablet 1 tab PO DAILY 08/12/21 Current Visit Medications: Current Medications Generic Name Dose Route Start Last Admin Trade Name Freq PRN Reason Stop Dose Admin Hyoscyamine Sulfate 0.125 mg 08/24/21 14:54 Hyoscyamine 0.125 Mg Sl/Oral/Chew SL 08/25/21 16:00 DIRECTED PRN Ringer's Solution 1,000 mls @ 80 mls/hr 08/25/21 06:00 08/25/21 11:12 IV 09/23/21 23:59 80 mls/hr INFUSION MARTY Administration IV Miscellaneous Supplies 1 each 08/25/21 06:00 Iv Access IV 09/23/21 23:59 DIRECTED MARTY Ondansetron HCl 4 mg 08/24/21 14:54 Ondansetron 4 Mg/2 Ml Vial IVP 08/25/21 16:00 Q4H PRN PRN Nausea / Vomiting Sodium Chloride 0 ml 08/25/21 06:00 Normal Saline Flush 10 Ml Syr IV 09/23/21 23:59 PRN PRN Sodium Chloride 0 ml 08/25/21 06:00 Normal Saline 10 Ml Vial IJ 09/23/21 23:59 DIRECTED PRN Sterile Water 0 ml 08/25/21 06:00 Water,Injection,Sterile 10 Ml Vial IJ 09/23/21 23:59 DIRECTED PRN PFSH Active Problems Active Problems: Problem Status Onset Code Screening for colon cancer Z12.11 Constipation K59.00 Abdominal pain R10.9 Abdominal bloating R14.0 Medical History Medical History Abnormal weight gain Hot flashes Interstitial cystitis Mixed anxiety and depressive disorder Neuropathy Perimenopausal Plantar wart, left foot Medical History Comments:: Father had delayed emergence issues. Surgical History Surgical History (Updated 08/25/21 @ 11:09 by Mary Kate Lombardi RN) History of cervical discectomy History of tonsillectomy and adenoidectomy Tobacco Smoking/Tobacco Use Status: Never Alcohol Alcohol Intake: current Alcohol intake frequency: holidays/special occasions only Substance Use Substance use: Never Substance use type: does not use Vital Signs and Lab Results Vital Signs Most Recent Vital Signs in EMR: Most Recent Vital Signs Temp Pulse Resp BP Pulse Ox 36.5 C 76 18 145/70 H 98 08/25/21 11:01 08/25/21 11:01 08/25/21 11:01 08/25/21 11:01 08/25/21 11:01 Lab Results Blood Type / Crossmatch: No Data to Display Complete Blood Count: White Blood Count 7.00 10^3/uL (4.4-10.8) 08/12/21 10:55 08/12/21 Red Blood Count 4.96 10^6/uL (3.93-5.22) 08/12/21 10:55 08/12/21 Hemoglobin 14.4 g/dL (11.2-15.7) 08/12/21 10:55 08/12/21 Hematocrit 44.9 % (36.0-46.0) 08/12/21 10:55 08/12/21 Platelet Count 227 10^3/uL (130-400) 08/12/21 10:55 08/12/21 Venous Blood Lactate 1.6 mmol/L (0.6-1.4) H 08/12/21 11:38 08/12/21 Complete Metabolic Panel: Sodium Level 141 mmol/L (136-145) 08/12/21 10:55 08/12/21 Potassium Level 3.6 mmol/L (3.5-5.1) 08/12/21 10:55 08/12/21 Chloride Level 105 mmol/L (98-107) 08/12/21 10:55 08/12/21 Carbon Dioxide Level 28.6 mmol/L (21.0-32.0) 08/12/21 10:55 08/12/21 Blood Urea Nitrogen 10 mg/dL (7-18) 08/12/21 10:55 08/12/21 Creatinine 1.1 mg/dL (0.55-1.02) H 08/12/21 10:55 08/12/21 Estimated GFR/1.73 m2 52.16 (mL/min/1.73m2) 08/12/21 10:55 08/12/21 Calcium Level 8.6 mg/dL (8.5-10.1) 08/12/21 10:55 08/12/21 Albumin 3.4 g/dL (3.4-5.0) 08/12/21 10:55 08/12/21 Glucose Level 134 mg/dL (74-106) H 08/12/21 10:55 08/12/21 C-Reactive Protein 0.11 mg/dL (0.0-0.3) 08/04/21 12:30 08/04/21 Liver Function Panel: Alanine Aminotransferase (ALT/SGPT) 34 U/L (14-59) 08/12/21 10:55 08/12/21 Aspartate Amino Transf (AST/SGOT) 19 U/L (15-37) 08/12/21 10:55 08/12/21 Coagulation Panel: D-Dimer 401 ng/mlFEU (<500) 08/12/21 11:38 08/12/21 Cardiac Panel: Troponin I < 50 ng/L (<or=60) 08/12/21 RC-Dxk-Z-Type Natriuretic Peptide 56 pg/mL (<300) 08/12/21 Arterial Blood Gas: No Data to Display Venous Blood Gas: No Data to Display Pancreas Panel: Lipase 95 U/L (73-393) 08/12/21 10:55 08/12/21 Thyroid Panel: Thyroid Stimulating Hormone (TSH) 1.07 uIU/mL (0.36-3.74) 08/04/21 12:30 08/04/21 Infectious Disease: 2 Coronavirus (COVID-19)(PCR) Negative (Negative) 08/23/21 07:37 08/23/21 Coronavirus 2019 Source Nasal/Nares 08/23/21 07:37 08/23/21 HIV (1&2) Ag and Ab, 4th Generation Negative (Negative) 08/04/21 12:30 08/04/21 Hepatitis C RNA Quantitative Not Applicable 08/04/21 12:30 08/04/21 Blood Cultures: No Data to Display Toxicology Panel: No Data to Display Panel: No Data to Display Imaging and Studies Imaging and Studies Study information below may be from another EMR and interpreted by another provider. Please see original notes in EMR for more complete details. EKG Summary: Conclusion Sinus rhythm...normal P axis, V-rate 60- 99 sinus rhythm, normal axis, non ischemic 08/15 Anesthesia Assessment and Plan Anesthesia History Personal History: No History of Anesthesia Complications Family History: Other (Father had hard time waking up) Exercise Tolerance Exercise Tolerance: Metabolic Equivalents>4 Pertinent Negatives Pertinent Negatives: No Major Cardiovascular Symptoms or Complaints, No Major Pulmonary Symptoms or Complaints, No History of CVA/TIA and Other (GERD) Cardiac & Pulmonary Exam Cardiac Exam: Normal S1/S2 Heart Sounds Pulmonary Exam: Clear Bilateral Breath Sounds Implantable Cardiac Device Does patient have a Pacemaker or an ICD?: No Airway Exam Known Difficult Airway: No Mallampati Class: 2 Mouth Opening: Normal (> 3cm) Thyromental Distance: Greater than 3 cm Neck Range of Motion: Full ROM Neck Circumference: Normal Teeth Condition: Normal Dentition ASA Classification ASA Score: ASA 2 Emergency Case?: No NPO Status NPO Status: NPO Clears >2 hours, Solids >8 hours Status Status: Not Relevant due to Medical History Anesthesia Plan Resuscitation Status: Full Code Anesthesia Technique: General Anesthesia Airway Planned: Natural Airway Monitors Used: Standard Monitors
[2021-08-25 11:19] VITALS: BMI 30.5
--- NOTE | 2021-08-25 11:41 | BOWEL_PTH ---
PATIENT: Kiana Dalton LOC: [facility] U#:[id number] AGE/SX: 51/F ROOM: RE08/25/[address]: Charity Hernandez : 1970 BED: DIS: 08/25/2021 SPEC #: [id number] RECD: 08/25/21 13:00 STATUS: TRINI LUCAS #: [id number] LIBERTAD: 08/25/21 11:[address]: Charity Hernandez DEPT: Surgical Specimen RECD BY: Becca Stephens ENTERED: 08/25/21 13:04 SP TYPE: Bowel OTHR DR: Melani Gamino Tissues: 1 - BIOPSY BOWEL 2 - BIOPSY BOWEL 3 - STOMACH BIOPSY 4 - ESOPHAGUS BIOPSY 5 - ESOPHAGUS BIOPSY 6 - BIOPSY BOWEL 7 - BIOPSY BOWEL 8 - BIOPSY BOWEL 9 - BIOPSY BOWEL 10 - BIOPSY BOWEL 11 - BIOPSY BOWEL 12 - BIOPSY BOWEL 13 - BIOPSY BOWEL Procedures: GROSS AND MICRO LEVEL 4 Comments: [id number]
[2021-08-25 12:30] VITALS: BP 102/51; PULSE 77; RESP 17; TEMP 36.4; O2SAT 94
--- NOTE | 2021-08-25 12:35 | W.ANESPOSTOP ---
Postoperative Evaluation Date, Time and Location Date Performed: 08/25/21 Time Performed: 12:35 Patient Location: Day Surgery Unit Vital Signs Most Recent Imported Vital Signs: Most Recent Vital Signs Temp Pulse Resp BP Pulse Ox 36.5 C 72 16 121/74 96 08/25/21 13:04 08/25/21 13:04 08/25/21 13:04 08/25/21 13:04 08/25/21 13:04 Temp Pulse Resp BP Pulse Ox 36.5 C 76 18 145/70 H 98 08/25/21 11:01 08/25/21 11:01 08/25/21 11:01 08/25/21 11:01 08/25/21 11:01 Pain Score Most Recent Pain Score: Most Recent Pain Score Pain Level 0 08/25/21 11:01 Assessment Mental Status: Awake (Alert & Oriented to Patient Baseline) Airway and Respiratory Function: Patent airway with normal (patient baseline) respiratory exam Cardiovascular Function: Hemodynamically Stable Hydration Status: Adequately Hydrated Nausea & Vomiting: No Nausea or Vomiting Pain: Pt. Denies Any Pain Peripheral Nerve Block: Patient did not receive a nerve block
[2021-08-25 13:04] VITALS: BP 121/74; PULSE 72; RESP 16; TEMP 36.5; O2SAT 96
[2021-08-25] MEDS: Hyoscyamine 0.125 MG SL/ORAL/CHEW SL (13:10)
== END 2021-08-25 13:57 | disposition home or self-care (01) ==
LOC: SUR 10:45
PROVIDERS: PCP Nurse Practitioner Family; Visit Provider Surgery
PROC: (CPT 45385; principal; 2021-08-25 11:15)
DX: Z12.11 Encounter for screening for malignant neoplasm of colon (principal); G62.9 Polyneuropathy, unspecified; F41.8 Other specified anxiety disorders; R14.0 Abdominal distension (gaseous); K58.1 Irritable bowel syndrome with constipation; K63.5 Polyp of colon; K29.80 Duodenitis without bleeding; K44.9 Diaphragmatic hernia without obstruction or gangrene; K63.89 Other specified diseases of intestine; K22.89 Other specified disease of esophagus; K31.89 Other diseases of stomach and duodenum
CPT/HCPCS: 45385; 45380; 43239; 88305; J3490

== ENCOUNTER 2021-09-05 01:27 | Outpatient (CLI) | payer OTHER, SELFPAY ==
--- NOTE | 2021-09-05 11:30 | DI.MAMMO_ITS ---
Exam(s) MAMMO SCREENING EXAM: MAMMO SCREENING CLINICAL HISTORY: SCREENING, Z12.39 TECHNIQUE: Bilateral full field digital CC and MLO mammographic images were obtained with 3D tomosyn thesis and utilizing computer aided detection (CAD). COMPARISON: Available for comparison. FINDINGS: Masses/Architectural Distortion: There has been interval increase in size of a nodule in the upper ou ter quadrant of the left breast. Microcalcifications: No suspicious pleomorphic-type are seen. Skin Thickening/Nipple Retraction: None. IMPRESSION: 1. Interval increase in size of the nodule in the upper outer quadrant of the left breast. 2. Spot compression views are requested for further evaluation. Ultrasound should also be obtained a t that time. BI-RADS Category 0 - Assessment Incomplete: Need additional imaging evaluation Breast Density - Category B - Scattered areas of fibroglandular density Breast density category C or D implies that the patient has dense breast tissue. Dense breast tissue is very common and is not abnormal but dense breast tissue can make it harder to find cancer on a ma mmogram. Also, dense breast tissue may increase their breast cancer risk. This information about the result of the mammogram report was provided to the patient to raise their awareness. Use this report when you speak with the patient about their risks for breast cancer, which includes their family hist ory. At that time, you may recommend for more screening tests (Ultrasound or MRI) as they might be us eful based on their risk. A negative radiographic report should not delay biopsy if a dominant or clinically suspicious mass is present. Up to ten percent of cancers are not identified on mammography. A negative report may reinforce clinical impression. Adenosis and dense breasts may obscure an underlying neoplasm. False positive reports average 6 to 10%. Patient will receive a letter notifying them of these results.
== END 2021-09-05 01:47 ==
PROVIDERS: PCP Nurse Practitioner Family; Visit Provider Family Medicine
DX: Z12.31 Encounter for screening mammogram for malignant neoplasm of breast (principal); R92.8 Other abnormal and inconclusive findings on diagnostic imaging of breast
CPT/HCPCS: 77063; 77067

== ENCOUNTER → 2021-09-14 01:11 | Outpatient (CLI) | payer OTHER, SELFPAY ==
--- NOTE | 2021-09-14 | DI.US_ITS ---
Exam(s) US BREAST LT COMPLETE EXAM: US BREAST LT COMPLETE CLINICAL HISTORY: INCREASE SIZE NODULE LEFT BREAST. TECHNIQUE: Complete ultrasound of the left breast was performed including all 4 quadrants, the retro areolar region, and the ipsilateral axilla. COMPARISON: Prior mammograms were reviewed. FINDINGS: No evidence of solid or significant cystic lesions in all 4 quadrants nor in the retroareolar region. No adenopathy in the left axilla IMPRESSION: Negative complete left breast ultrasound. This implies that the nodule is most probably a benign int ramammary lymph node. Appropriate follow-up is repeat left breast MAMMOGRAM 6 months.. Findings and recommendations were discussed by myself with the patient today BI-RADS Category 3 - 6 month - Probably Benign Finding: Recommend follow-up mammography in 6 months Breast Density - Category B - Scattered areas of fibroglandular density Breast density Category C or D implies that the patient has dense breast tissue. Dense breast tissue can make it harder to find cancer on a mammogram. Dense breast tissue is also associated with an incr eased risk of breast cancer. This information about the result of the mammogram report was provided to the patient to raise their awareness. Use this report when you speak with the patient about their risks for breast cancer, which includes their family history. At that time, you may recommend additional screening tests (Ultrasoun d or MRI) as these tests may add significant information. A negative radiographic report should not delay biopsy if a dominant or clinically suspicious mass is present. Up to ten percent of cancers are not identified on mammography. A negative report may reinforce clinical impression. Adenosis and dense breasts may obscure an underlying neoplasm. False positive reports average 6 to 10%. Patient will receive a letter notifying them of these results.
--- NOTE | 2021-09-14 14:38 | DI.MAMMO_ITS ---
Exam(s) MAMMO SCREEN CALL BACK UNI EXAM: MAMMO SCREEN CALL BACK UNI -LEFT AND COMPLETE LEFT BREAST ULTRASOUND CLINICAL HISTORY: INCREASE SIZE NODULE LEFT BREAST. TECHNIQUE: Unilateral spot mammographic images obtained with 3D tomosynthesisand utilizing computer aided detection (CAD). . Complete LEFT breast Ultrasound was also performed, including all 4 quadrants, the retroareolar regio n, and the ipsilateral axilla. COMPARISON: Prior mammograms were reviewed. This additional imaging was performed due to findings described on the recent screening mammogram of 09/05/2021. FINDINGS: DIAGNOSTIC LEFT BREAST MAMMOGRAM: Additional mammographic views performed todaydo not dissipate nodule but reveal a medial notch implyi ng that it is probably a benign lymph node. COMPLETE LEFT BREAST ULTRASOUND: Ultrasound performed today reveals no evidence of solid or significant cystic lesions in all 4 quadra nts. Retroareolar regions unremarkable. There is no adenopathy in the left axilla.. IMPRESSION: Persistent nodule which has the appearance of a probable benign intramammary lymph node. In addition , absence of visualization on complete left breast ultrasound is further evidence that this is probab ly benign intramammary lymph node. Appropriate follow-up , as discussed by myself with the patient today, is repeat left breast MAMMOGRA M in 6 months. The patient was informed of these findings and recommendations prior to leaving the department today. BI-RADS Category 3 - 6 month - Probably Benign Finding: Recommend follow-up mammography in 6 months Breast Density - Category B - Scattered areas of fibroglandular density Breast density Category C or D implies that the patient has dense breast tissue. Dense breast tissue can make it harder to find cancer on a mammogram. Dense breast tissue is also associated with an incr eased risk of breast cancer. This information about the result of the mammogram report was provided to the patient to raise their awareness. Use this report when you speak with the patient about their risks for breast cancer, which includes their family history. At that time, you may recommend additional screening tests (Ultrasoun d or MRI) as these tests may add significant information. A negative radiographic report should not delay biopsy if a dominant or clinically suspicious mass is present. Up to ten percent of cancers are not identified on mammography. A negative report may reinforce clinical impression. Adenosis and dense breasts may obscure an underlying neoplasm. False positive reports average 6 to 10%. Patient will receive a letter notifying them of these results.
== END ==
PROVIDERS: PCP Nurse Practitioner Family; Visit Provider Family Medicine
DX: Z12.31 Encounter for screening mammogram for malignant neoplasm of breast (principal); R92.8 Other abnormal and inconclusive findings on diagnostic imaging of breast; N60.82 Other benign mammary dysplasias of left breast
CPT/HCPCS: 76642; 77063; 77067

== ENCOUNTER 2021-10-06 08:46 | Emergency (ER) | payer OTHER, SELFPAY ==
[2021-10-06] VITALS (11 sets, daily range): BP systolic 113–138; BP diastolic 66–92; PULSE 65–82; RESP 15–23; TEMP 36.3; O2SAT 90–95
--- NOTE | 2021-10-06 08:55 | W.ED.GENAD ---
Discharge Plan Disposition Patient Disposition: HOME Condition: Improving Discharge Details Clinical Impression: Back pain Primary Care Provider: Melani Gamino ED Provider: Waqar Willoughby Home Meds and New Rx's Prescriptions: New diazepam [Valium] 5 mg tablet 5 mg PO TID PRNQty: 10 0RF Continued magnesium oxide 400 mg magnesium capsule 400 mg PO BID [id number]-vbiufzri-jiagjb Tablet 1 tab PO DAILY Discharge Instructions Instructions: Back Pain (ED) Additional Instructions: Valium as directed. This medication may cause drowsiness. Lklu-mnu-zxnfxqa ibuprofen 800 mg every 8 hours, for the next 3-5 days. Cool and/or warm compresses every 2 hours for 20 minutes. Gentle stretching as tolerated. Please watch for new or worsening symptoms and return to the ER for any concerns. Otherwise I would like you to contact your primary care provider to discuss your ER visit and need for outpatient reevaluation. If symptoms are to persist then outpatient MRI, referral to back specialist, PT, etc. may all be indicated. 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 She denies any fever, fall, numbness, tingling, weakness, bowel or bladder changes. She states the pain is worse with movement, and at times gets so severe it makes her fall to her knees. She has taken kkwg-qcb-dclbuao Motrin with minimal relief. Reports history of L4-5 disc herniation but reports that she has not had a flareup in quite some time although this does feel somewhat similar. Clinically she appears uncomfortable but is neuro, vascular, tendon intact. There is no midline point tenderness. Advanced imaging likely little value. Discussed symptomatic treatment with IV Toradol, Valium, morphine and reassessment. Outpatient referral to back specialist, MRI, PT likely indicated if symptoms are to persist Patient reports significant relief of her discomfort with the IV medications. At rest she is pain-free, no spasm. With movement she has mild pain but no spasm and feels well enough for discharge. She remains neurologically intact. She is able to ambulate steadily. Plan is to provide a short term prescription of Valium and her is coming to pick her up. He is likely at least 1 hour away and therefore will provide 5 mg p.o. Valium prior to discharge. Standard discharge and return precautions were provided. Patient understands, is agreeable to this plan, and has no additional questions or concerns upon discharge. This documentation was generated using [employer] system, please disregard any oddities of phrase or misspellings. Medical Records Medical records reviewed: Yes I reviewed the patient's medical records. HPI General Mode of arrival: ambulatory. Date/Time Provider Initiated Documentation: 10/06/21 08:48. Limitations to Documentation: no limitations. Information obtained by: patient. History of Present Illness 51 year old F presents to the emergency department with the chief complaint of Back pain/spasm, described as severe and similar to prior episodes, with intensity rated at 9. Quality is described as aching (spasm), and is localized to the back and left. Patient reports no radiation. Patient started experiencing this day(s) (5) and it has been constant. Immobilization improves symptom(s), Movement worsens symptoms . Patient notes denies chest pain, fever/chills, nausea/vomiting and weakness. Patient did receive the following treatments prior to arrival, NSAID Related Data Home Medications Medication Instructions Recorded Confirmed magnesium oxide 400 mg PO BID 10/27/20 10/06/21 qfnkrcwfgllp-xmplbaqs-wmfysi tablet 1 tab PO DAILY 08/12/21 10/06/21 diazepam 5 mg tablet (Valium) 5 mg PO TID PRN #10 tabs 10/06/21 Previous Rx's Medication Instructions Recorded diazepam 5 mg tablet (Valium) 5 mg PO TID PRN #10 tabs 10/06/21 Allergies Allergy/AdvReac Type Severity Reaction Status Date / Time lisinopril Allergy Severe angioedema Verified 10/06/21 09:17 phenazopyridine Allergy Severe unknown Verified 10/06/21 09:17 [From Pyridium] hydrochlorothiazide Allergy Intermediate Trigger Verified 10/06/21 09:17 finger, joint pain, mirabegron [From Myrbetriq] Allergy Intermediate unknown Verified 10/06/21 09:17 gabapentin [From Neurontin] Allergy Mild unknown Verified 10/06/21 09:17 penicillin V Allergy Mild unknown Verified 10/06/21 09:17 pregabalin [From Lyrica] Allergy Mild unknown Verified 10/06/21 09:17 General DEREK: 3 Review of Systems Constitutional Constitutional: Denies fever(s) and Denies weakness Cardiovascular Cardiovascular: Denies chest pain and Denies dyspnea Respiratory Respiratory: Denies dyspnea Gastrointestinal Gastrointestinal: Denies abdominal pain, Denies fecal incontinence, Denies nausea and Denies vomiting Genitourinary Genitourinary: Denies hematuria, Denies dysuria and Denies urinary incontinence Musculoskeletal Musculoskeletal: Denies numbness, Reports stiffness and Denies tingling Integumentary/Breasts Skin/Breast: Denies rash Neurologic Neurologic: Denies numbness, Denies tingling and Denies weakness PFSH All Active Problems Back pain (Acute) Hiatal hernia with GERD (Acute) Inflammatory polyps of colon (Acute) large. repeat in 5 yrs Constipation (Acute) resolved w/ stopping CE Abdominal bloating (Acute) resolved w/ stopping HCTZ Medical History Abnormal weight gain Hot flashes Interstitial cystitis Mixed anxiety and depressive disorder Neuropathy Perimenopausal Plantar wart, left foot Surgical History History of cervical discectomy History of colonoscopy with polypectomy (~08/25/21) History of esophagogastroduodenoscopy (EGD) (~08/25/21) History of tonsillectomy and adenoidectomy Social History Smoking/Tobacco Use Status: Never Smoking risk assessment performed?: Yes Alcohol Intake: current Alcohol Intake frequency: holidays/special occasions only Drug use: Never Substance use type: does not use Do you feel safe at home: Yes Do you feel safe in your relationship?: Yes Exam Const General: cooperative, healthy appearing, no acute distress and other (Appears uncomfortable, especially with movement and/or spasm) Orientation: alert and awake [facility] Head: normal to inspection, normocephalic and atraumatic Eyes General: appearance normal, both eyes and all related structures Conjunctivae: conjunctivae normal Neck Neck: normal visual inspection, full ROM, trachea midline and supple Resp Effort & Inspection: normal respiratory effort and able to speak in complete sentences Auscultation: clear to auscultation bilaterally Cardio Rate: regular rate Rhythm: regular rhythm GI Palpation: soft, not firm, no guarding, no pulsatile masses and nontender Auscultation: normal bowel sounds Back/Spine/Pelvis Back: no CVA tenderness and back tenderness (Left paravertebral lumbar) Thoracic/Lumbar Spine: thoraco-lumbar spasm (Left lumbar) and straight leg raise positive (Bilateral, left 10 degrees, right 15 degrees) Skin General skin exam: no rashes or lesions noted Neuro General: patient alert, patient awake, patient oriented x3, moves all extremities and no focal motor deficits Cognition: normal cognition Speech: speech normal Gait: antalgic Motor: muscle tone normal throughout and strength 5/5 throughout Sensory Exam: no sensory deficits noted Extrem General: normal to inspection, full ROM, capillary refill normal, no pedal edema and no calf tenderness Psych Appearance: grossly normal Mental Status: mental status grossly normal
[2021-10-06] MEDS: MORPHine 4 MG/ML SYR IVP (09:32)
[2021-10-06] MEDS: diazePAM 10 MG/2 ML SYR IVP (09:33)
[2021-10-06] MEDS: Ketorolac 30 MG/ML VIAL IVP (09:33)
== END 2021-10-06 10:57 | disposition home or self-care (01) ==
PROVIDERS: Emergency Provider Physician Assistant; PCP Nurse Practitioner Family
DX: M54.50 Low back pain, unspecified (principal); X50.0XXA Overexertion from strenuous movement or load, initial encounter
CPT/HCPCS: 96374; 96375; 99284; 99283; J1885; J2270; J3360

== ENCOUNTER → 2022-03-20 01:16 | Outpatient (CLI) | payer OTHER, SELFPAY ==
--- NOTE | 2022-03-20 | DI.MAMMO_ITS ---
Exam(s) MAMMO DIAGNOSTIC UNI EXAM: MAMMO DIAGNOSTIC UNI -LEFT CLINICAL HISTORY: ABNL FINDINGS LEFT BREAST R92.8, 6 MO F/U FROM 08/2021. TECHNIQUE: Unilateral spot mammographic images were obtained with 3D tomosynthesis technique and uti lizing computer aided detection (CAD). COMPARISON: Prior mammograms were reviewed, the most recent being 09/05/2021. prior ultrasound was also reviewed.. FINDINGS: The previously described left breast nodules unchanged and again has appearance of benign intramammar y lymph node. No new mammographic findings in left breast. IMPRESSION: Stable appearance of left breast nodule which is most probably benign intramammary lymph node. Appropriate follow-up is to keep this patient yearly mammogram schedule, implying the next bilateral mammogram would be in August 2022, with earlier imaging if a self detected breast changes noted.. The patient was informed of the findings and follow-up recommendations prior to leaving the [facility] today. BI-RADS Category 3 - 6 month - Probably Benign Finding: Recommend follow-up mammography in 6 months Breast Density - Category B - Scattered areas of fibroglandular density Breast density Category C or D implies that the patient has dense breast tissue. Dense breast tissue can make it harder to find cancer on a mammogram. Dense breast tissue is also associated with an incr eased risk of breast cancer. This information about the result of the mammogram report was provided to the patient to raise their awareness. Use this report when you speak with the patient about their risks for breast cancer, which includes their family history. At that time, you may recommend additional screening tests (Ultrasoun d or MRI) as these tests may add significant information. A negative radiographic report should not delay biopsy if a dominant or clinically suspicious mass is present. Up to ten percent of cancers are not identified on mammography. A negative report may reinforce clinical impression. Adenosis and dense breasts may obscure an underlying neoplasm. False positive reports average 6 to 10%. Patient will receive a letter notifying them of these results.
== END ==
PROVIDERS: PCP Nurse Practitioner Family; Visit Provider Nurse Practitioner Family
DX: R92.8 Other abnormal and inconclusive findings on diagnostic imaging of breast (principal)
CPT/HCPCS: 77061; 77065; G0279

== ENCOUNTER 2022-06-14 13:21 | Outpatient (REF) | payer BC, SELFPAY ==
--- OUTSIDE RECORDS SUMMARY | 2022-06-14 13:24 | XMS_ITS | CCD ---
:1970 Author Care Team Providers Name Role Phone JESSICA HOWE Attending Physician Unavailable JESSICA HOWE Rounding (Secondary) Physician Unavailab le Vital Signs Unknown or Not Available. Allergies Allergy Code Allergy Type Reaction Status PENICILLINS (CLASS) 49093 Drug allergy RASH Active Procedures Unknown or Not Available. History of Immunizations Unknown or Not Available. Problems Unknown or Not Available. Results Unknown or Not Available. Active Medications Unknown or Not Available. Medications Administered During Visit Unknown or Not Available. Encounters Encounter Diagnosis Diagnosis Code Start Date Pain in right foot [id number] 04/06/2021 Social History Smoking Status Code Start Date End Date Never smoker [id number] Patient Decision Aids Unknown or Not Available. Discharge Instructions You were admitted to [facility] on 04/06/2021 14:51 with a principal diagnosis of Pain in right foot You were discharged from [facility] on 04/06/2021 00:00 Should you have any questions prior to d ischarge, please contact a member of your healthcare team. If you have left the ho spital and have any questions, please contact your primary care physician. Chief Complaint and Reason For Visit Unknown or Not Available. Function Status Unknown or Not Available. Plan of Care Unknown or Not Available. Referral/Transition of Care Unknown or Not Available.
--- OUTSIDE RECORDS SUMMARY | 2022-06-14 13:25 | XMS_ITS | CCD ---
:1970 Author Care Team Providers Name Role Phone JESSICA HOWE Attending Physician Unavailable JESSICA HOWE Rounding (Secondary) Physician Unavailab le Vital Signs Unknown or Not Available. Allergies Allergy Code Allergy Type Reaction Status PENICILLINS (CLASS) 85569 Drug allergy RASH Active Procedures Unknown or Not Available. History of Immunizations Unknown or Not Available. Problems Unknown or Not Available. Results Unknown or Not Available. Active Medications Unknown or Not Available. Medications Administered During Visit Unknown or Not Available. Encounters Encounter Diagnosis Diagnosis Code Start Date Pain in right foot [id number] 05/15/2021 Social History Smoking Status Code Start Date End Date Never smoker [id number] Patient Decision Aids Unknown or Not Available. Discharge Instructions You were admitted to [facility] on 05/15/2021 13:53 with a principal diagnosis of Pain in right foot You were discharged from [facility] on 05/15/2021 00:00 Should you have any questions prior [...]
[2022-06-14 15:09] LABS: ALT 24 U/L (14-59); AST 24 U/L (15-37); Albumin 3.9 g/dL (3.4-5.0); Alkaline Phosphatase 92 U/L (46-116); Anion Gap 6.1 mmol/L (3-11); BUN 13 mg/dL (7-18); Bilirubin, Total 0.4 mg/dL (0.2-1.0); CO2 29.9 mmol/L (21.0-32.0); CREATININE 0.9 mg/dL (0.55-1.02); Calcium 9.6 mg/dL (8.5-10.1); Calculated LDL 192 mg/dL (<100); Chloride 103 mmol/L (98-107); Cholesterol 266 mg/dL (<200); Estimated GFR 76.92 (mL/min/1.73m2); Glucose 109 mg/dL (74-106); HDL Cholesterol 50 mg/dL (40-60); Potassium 4.4 mmol/L (3.5-5.1); Sodium 139 mmol/L (136-145); TSH (W/Ref FT4) 1.25 uIU/mL (0.36-3.74); Total Protein 8.1 g/dL (6.4-8.2); Triglyceride 123 mg/dL (<150)
== END 2022-06-14 13:22 | disposition home or self-care (01) ==
LOC: NCHCN 13:21
PROVIDERS: PCP Nurse Practitioner Family; Visit Provider Nurse Practitioner Family
DX: I10 Essential (primary) hypertension (principal); E78.5 Hyperlipidemia, unspecified; Z13.29 Encounter for screening for other suspected endocrine disorder
CPT/HCPCS: 80053; 80061; 84443

== ENCOUNTER 2022-07-30 13:33 | Outpatient (REF) | payer BC, SELFPAY ==
[2022-07-30 15:26] LABS: ALT 33 U/L (14-59); AST 20 U/L (15-37); Albumin 3.6 g/dL (3.4-5.0); Alkaline Phosphatase 101 U/L (46-116); Anion Gap 8.5 mmol/L (3-11); BUN 9 mg/dL (7-18); Bilirubin, Total 0.4 mg/dL (0.2-1.0); CO2 27.5 mmol/L (21.0-32.0); CREATININE 0.9 mg/dL (0.55-1.02); Calculated LDL 85 mg/dL (<100); Chloride 106 mmol/L (98-107); Cholesterol 148 mg/dL (<200); Estimated GFR 76.44 (mL/min/1.73m2); Glucose 104 mg/dL (74-106); HDL Cholesterol 45 mg/dL (40-60); Potassium 4.5 mmol/L (3.5-5.1); Sodium 142 mmol/L (136-145); Total Protein 7.5 g/dL (6.4-8.2); Triglyceride 94 mg/dL (<150)
== END 2022-07-30 13:34 | disposition home or self-care (01) ==
LOC: NCHCN 13:33
PROVIDERS: Family Medicine; PCP Nurse Practitioner Family; Visit Provider Nurse Practitioner Family
DX: E78.5 Hyperlipidemia, unspecified (principal); B35.1 Tinea unguium; I10 Essential (primary) hypertension
CPT/HCPCS: 80053; 80061

== ENCOUNTER 2022-09-19 01:07 | Outpatient (CLI) | payer BC, SELFPAY ==
--- NOTE | 2022-09-19 | DI.MAMMO_ITS ---
Exam(s) MAMMO DIAGNOSTIC BI EXAM: MAMMO DIAGNOSTIC BI CLINICAL HISTORY: 6 MO F/U MAMMO, R92.8 TECHNIQUE: Mammograms were interpreted according to the usual protocol including computer analysis w [employer] CAD system, tomosynthesis and C-view imaging. COMPARISON: 2020, 05 September and 20 March 2022 FINDINGS: The breasts are composed of scattered fibroglandular densities, Breast Density category B. No suspicious masses or suspicious microcalcifications are seen. There has been no change in the nod ule in the anterior upper outer left breast, consistent with a lymph node. No new findings. No skin thickening or abnormal axillary lymph nodes are seen. There has been no significant change from prior exams. IMPRESSION: BI-RADS Category 1, Negative mammogram Yearly screening mammography is recommended. Breast Density - Category B, scattered fibroglandular densities. A negative radiographic report should not delay biopsy if a dominant or clinically suspicious mass is present. Up to ten percent of cancers are not identified on mammography. A negative report may reinforce clinical impression. Adenosis and dense breasts may obscure an underlying neoplasm. False positive reports average 6 to 10%. Patient will receive a letter notifying them of these results.
== END 2022-09-19 01:27 ==
LOC: DI 01:07
PROVIDERS: PCP Nurse Practitioner Family; Visit Provider Nurse Practitioner Family
DX: R92.8 Other abnormal and inconclusive findings on diagnostic imaging of breast (principal)
CPT/HCPCS: 77062; 77066; G0279

== ENCOUNTER 2022-11-17 11:30 | Observation (INO) | payer BC, SELFPAY ==
[2022-11-17] VITALS (7 sets, daily range): BP systolic 113–126; BP diastolic 57–84; PULSE 71–113; RESP 16–18; TEMP 36–38.4; O2SAT 90–97
--- NOTE | 2022-11-17 11:52 | ED.GENADUL_ITS ---
Discharge Plan Discharge Details Chief Complaint: Cellulitis Primary Care Provider: Mary Wheatley ED Provider: Jakob Kirby Home Meds and New Rx's Prescriptions: No Action magnesium oxide 400 mg magnesium capsule 400 mg PO BID plklpyijeuap-qkulgzhf-glfhod Tablet 1 tab PO DAILY diazepam [Valium] 5 mg tablet 5 mg PO TID PRNQty: 10 0RF atorvastatin 40 mg tablet 40 mg PO QHS Patient Comments: TAKE 1 TABLET BY MOUTH EVERY EVENING amlodipine 5 mg tablet 5 mg PO DAILY Patient Comments: TAKE 1 TABLET BY MOUTH EVERY DAY Medical Decision Making 52-year-old presents to the emergency room for evaluation of cellulitis of the right lower extremity. There is lymphangitis streaking. Initial lactate mildly elevated. White count of 15 with a shift. Rest of labs unremarkable. Patient well-appearing. Treated with Rocephin. Case discussed with my colleague hospitalist at 1230. Patient to be admitted observation. HPI General Date/Time Provider Initiated Documentation: 11/17/22 11:51 . HPI Narrative: 52-year-old lady presented to the emergency room for evaluation of cellulitis. He states that she was working in the garden last week and sustained what she thinks may have been some insect bite. She had some small blisters on the ankles. She scratched them vigorously. Some small blisters became quite small craters. As of 2 days ago she noticed some redness and pain surrounding the right ankle lesion. The swelling and redness has been. She now has of the lower leg right groin and tendon tenderness in the right inguinal area. She felt nauseous earlier today. No quantified fevers nor chills. Positive malaise and fatigue. Related Data Home Medications Medication Instructions Recorded Confirmed magnesium oxide 400 mg PO BID 10/27/20 11/17/22 ciiueqziwrap-bmifdhsz-joeyut tablet 1 tab PO DAILY 08/12/21 11/17/22 diazepam 5 mg tablet (Valium) 5 mg PO TID PRN #10 tabs 10/06/21 amlodipine 5 mg tablet 5 mg PO DAILY 11/17/22 11/17/22 atorvastatin 40 mg tablet 40 mg PO QHS 11/17/22 11/17/22 Previous Rx's Medication Instructions Recorded diazepam 5 mg tablet (Valium) 5 mg PO TID PRN #10 tabs 10/06/21 Allergies Allergy/AdvReac Type Severity Reaction Status Date / Time lisinopril Allergy Severe angioedema Verified 11/17/22 11:40 phenazopyridine Allergy Severe unknown Verified 11/17/22 11:40 [From Pyridium] hydrochlorothiazide Allergy Intermediate Trigger Verified 11/17/22 11:40 finger, joint pain, mirabegron [From Myrbetriq] Allergy Intermediate unknown Verified 11/17/22 11:40 gabapentin [From Neurontin] Allergy Mild unknown Verified 11/17/22 11:40 penicillin V Allergy Mild unknown Verified 11/17/22 11:40 pregabalin [From Lyrica] Allergy Mild unknown Verified 11/17/22 11:40 General Stated Complaint: Cellulitis DEREK: 3 Review of Systems Narrative: 10 point review of systems is negative unless otherwise specified in the HPI PFSH All Active Problems (Updated 11/06/21 @ 00:05 by FRANCES SAAVEDRA) Hiatal hernia with GERD (Acute) Inflammatory polyps of colon (Acute) large. repeat in 5 yrs Constipation (Acute) resolved w/ stopping CE Abdominal bloating (Acute) resolved w/ stopping HCTZ Medical History Abnormal weight gain Hot flashes Interstitial cystitis Mixed anxiety and depressive disorder Neuropathy Perimenopausal Plantar wart, left foot Surgical History History of cervical discectomy History of colonoscopy with polypectomy (~08/25/21) History of esophagogastroduodenoscopy (EGD) (~08/25/21) History of tonsillectomy and adenoidectomy Social History Smoking/Tobacco Use Status: Never Smoking risk assessment performed?: Yes Alcohol Intake: current Alcohol Intake frequency: holidays/special occasions only Drug use: Never Substance use type: does not use Do you feel safe at home: Yes Do you feel safe in your relationship?: Yes Exam Narrative Exam Narrative: General: A,A Ox3, Calm, no apparent distress, well developed, pleasant and cooperative Head Size/Shape: normocephalic, atraumatic Eyes Pupils: PERRLA Extraocular Mobility: intact and symmetrical Conjunctiva: non-injected, anicteric, no discharge Ears, Nose, Throat Nares: patent bilaterally Oral Cavity: moist Respiratory Effort: no dyspnea Auscultation: clear to auscultation bilaterally, normal breath sounds, no wheezing, no rales/crackles Heart Auscultation: regular rate and rhythm, normal S1, normal S2, no murmurs, no rubs, no gallops, Normal cap refill Abdomen Inspection and Palpation: soft, non-tender, non-distended, no hepatosplenomegaly Musculoskeletal System Joints, Bones, and Muscles: no deformities Extremities: warm and well-perfused, no cyanosis, capillary refill <2 seconds Skin Skin Inspection: Right lower extremity, positive erythematous area overlying the lateral aspect of the right ankle with streaking of the medial aspect of the leg thigh. Positive lymphadenopathy to the right groin. Neurological Motor: normal tone, normal strength, moving all extremities equally Reflexes: deep tendon reflexes 2+ bilaterally, no clonus Psychiatric: good insight, good judgement, normal mood and affect Course Vital Signs Vital signs: Vital Signs Temperature 36.9 C 11/17/22 11:34 Pulse 113 H 11/17/22 11:34 Respiratory Rate 16 11/17/22 11:34 Blood Pressure 126/71 11/17/22 11:34 Pulse Oximetry 97 11/17/22 11:34 Temperature 36.9 C 11/17/22 11:34 Temperature Source Oral 11/17/22 11:34 Pulse 113 H 11/17/22 11:34 Respiratory Rate 16 11/17/22 11:34 Respiratory Effort Normal 11/17/22 11:38 Blood Pressure 126/71 11/17/22 11:34 Blood Pressure Position Sitting 11/17/22 11:34 Pulse Oximetry 97 11/17/22 11:34 Oxygen Delivery Method Room Air 11/17/22 11:34 Oxygen Flow Rate 0 11/17/22 11:34 PAWSS Have you Been Recently Intoxicated or Drunk Within the Last 30 days?: No Have you Ever Experienced Previous Episodes of Alcohol Withdrawal?: No Have you ever Experienced Withdrawal Seizures?: No Have you ever Experienced Delirium Tremens(DT)s?: No Have you ever undergone Alcohol Rehabilitation Treatment (i.e, inpt ot outpatient treatment programs)?: No Have you ever Experienced Blackouts?: No Have you ever Combined Alcohol with other Downers within the last 90 days?: No Have you ever Combined Alcohol with any other Substance of Abuse during the last 90 days?: No Result: 0
[2022-11-17 12:17] LABS: Abs Immature Grans 0.07 10^3/uL (0.0-0.06); Absolute Basophil Count 0.05 10^3/uL (0.0-0.2); Absolute Eosinophil Count 0.06 10^3/uL (0.0-0.7); Absolute Lymphocyte Count 1.19 10^3/uL (1.2-3.4); Absolute Monocyte Count 0.78 10^3/uL (0.1-0.8); Absolute Neutrophil Count 13.49 10^3/uL (1.2-6.7); Basophils % 0.3; Eosinophils % 0.4; HCT 42.6 % (36.0-46.0); HGB 14.1 g/dL (11.2-15.7); Immature Grans % 0.4; Lymphocytes % 7.6; MCH 29.4 pg (27.0-33.0); MCHC 33.1 % (32.0-36.0); MCV 89 fL (80-95); MPV 10.7 fL (8.0-11.0); Neutrophils % 86.3; Platelet Count 230 10^3/uL (130-400); RDW-SD 42.4 fL; WBC 15.63 10^3/uL (4.4-10.8)
[2022-11-17 12:18] LABS: Lactate 2.5 mmol/L (0.6-1.4)
[2022-11-17] MEDS: Normal Saline 1,000 ML 2000 ML IV (12:21)
[2022-11-17] MEDS: ACETAMINOPHEN 1,000 MG/100 ML BTL 400 MG (12:23)
[2022-11-17 12:35] LABS: ALT 31 U/L (14-59); AST 16 U/L (15-37); Albumin 3.4 g/dL (3.4-5.0); Alkaline Phosphatase 92 U/L (46-116); Anion Gap 10.9 mmol/L (3-11); BUN 9 mg/dL (7-18); Bilirubin, Total 0.7 mg/dL (0.2-1.0); CO2 24.1 mmol/L (21.0-32.0); CREATININE 1.1 mg/dL (0.55-1.02); Calcium 8.7 mg/dL (8.5-10.1); Chloride 103 mmol/L (98-107); Estimated GFR 60.08 (mL/min/1.73m2); Glucose 150 mg/dL (74-106); Magnesium 1.7 mg/dL (1.8-2.4); Potassium 3.8 mmol/L (3.5-5.1); Sodium 138 mmol/L (136-145); Total Protein 7.6 g/dL (6.4-8.2); Troponin I < 50 ng/L (<or=60)
[2022-11-17] MEDS: cefTRIAXone 1 GM/50 ML BAG IVPB (12:50)
[2022-11-17] MEDS: MAGNESIUM SULFATE 2 GM/50 ML BAG IVPB (14:37)
--- NOTE | 2022-11-17 16:07 | HPE_ITS ---
Date of service: 11/17/22 Time of Service: 16:12 Assessment and Plan Assessment and plan (1) Cellulitis of right ankle: Status: Acute Assessment and plan: Cellulitis of the right ankle, red, warm, swollen, small open area about 1 cm, scabbed Ceftriaxone BC pending WBC elevated, 15.63 trend Fever - treat with tylenol Pain - Ketorolac for moderate pain, hydromorphone for severe pain Elevate, cool compresses Murpirocin to open areas w dsd (2) Hypomagnesemia: Status: Acute Assessment and plan: Mag 1.7; repleted w 2 gm IV - follow (3) DVT prophylaxis: Status: Acute Assessment and plan: Enoxaparin 40 mg daily (4) Discharge planning issues: Status: Acute Assessment and plan: Home with oral abx when improved and stable Discussed with Dr Mata History of Present Illness History of Present Illness Chief Complaint: Swollen & painful right ankle Narrative: This is a 52-year female patient with past medical history of who presented to the [facility] emergency room for complaint of right ankle pain, redness and swelling. She stated she was working in the garden last week and sustained what she thought may have been an insect bite.? She had some small blisters on both anterior medial ankles.? She scratched them vigorously.? Some small blisters became quite small craters.? As of 2 days ago she noticed some redness and pain surrounding the right ankle lesion.? She now has of the lower right leg groin and tendon tenderness in the right inguinal area. She reported feeling nauseous earlier today.? No quantified fevers nor chills.? Positive malaise and fatigue. WBC 15.63, Creatinine 1.1, glucose 150, magnexium 1.7. She is admitted to the medical floor for IV antibiotics, further testing and treatment. She is a full code. Review of Systems All systems reviewed & are unremarkable except as noted in HPI and below PFSH All Active Problems (Updated 11/17/22 @ 16:55 by Eli Hernadez NP) Hypomagnesemia (Acute) Discharge planning issues (Acute) DVT prophylaxis (Acute) Cellulitis of right ankle (Acute) Hiatal hernia with GERD (Acute) Inflammatory polyps of colon (Acute) large. repeat in 5 yrs Constipation (Acute) resolved w/ stopping CE Abdominal bloating (Acute) resolved w/ stopping HCTZ Medical History Abnormal weight gain Hot flashes Interstitial cystitis Mixed anxiety and depressive disorder Neuropathy Perimenopausal Plantar wart, left foot Surgical History History of cervical discectomy History of colonoscopy with polypectomy (~08/25/21) History of esophagogastroduodenoscopy (EGD) (~08/25/21) History of tonsillectomy and adenoidectomy Social History Smoking/Tobacco Use Status: Never Smoking risk assessment performed?: Yes Alcohol Intake: current Alcohol Intake frequency: holidays/special occasions only Drug use: Never Substance use type: does not use Do you feel safe at home: Yes Do you feel safe in your relationship?: Yes Meds Allergies and Home Medications Allergies Allergy/AdvReac Type Severity Reaction Status Date / Time lisinopril Allergy Severe angioedema Verified 11/17/22 11:40 phenazopyridine Allergy Severe unknown Verified 11/17/22 11:40 [From Pyridium] hydrochlorothiazide Allergy Intermediate Trigger Verified 11/17/22 11:40 finger, joint pain, mirabegron [From Myrbetriq] Allergy Intermediate unknown Verified 11/17/22 11:40 gabapentin [From Neurontin] Allergy Mild unknown Verified 11/17/22 11:40 penicillin V Allergy Mild unknown Verified 11/17/22 11:40 pregabalin [From Lyrica] Allergy Mild unknown Verified 11/17/22 11:40 Home Medications Medication Instructions Recorded Confirmed Type magnesium oxide 400 mg PO BID 10/27/20 11/17/22 History [id number] tablet 1 tab PO DAILY 08/12/21 11/17/22 History diazepam 5 mg tablet (Valium) 5 mg PO TID PRN #10 tabs 10/06/21 Rx amlodipine 5 mg tablet 5 mg PO DAILY 11/17/22 11/17/22 History atorvastatin 40 mg tablet 40 mg PO QHS 11/17/22 11/17/22 History Exam Narrative Exam Narrative: General: A,A Ox3, Calm, no apparent distress, well developed, pleasant and cooperative Head Size/Shape: normocephalic, atraumatic Eyes Pupils: PERRLA Extraocular Mobility: intact and symmetrical Conjunctiva: non-injected, anicteric, no discharge Ears, Nose, Throat Nares: patent bilaterally Oral Cavity: moist Respiratory Effort: no dyspnea Auscultation: clear to auscultation bilaterally, normal breath sounds, no wheezing, no rales/crackles Heart Auscultation: regular rate and rhythm, normal S1, normal S2, no murmurs, no rubs, no gallops, Normal cap refill Abdomen Inspection and Palpation: soft, non-tender, non-distended, no hepatosplenomegaly Musculoskeletal System Joints, Bones, and Muscles: no deformities Extremities: warm and well-perfused, no cyanosis, capillary refill <2 seconds Skin Skin Inspection: Right lower extremity, positive erythematous area overlying the lateral aspect of the right ankle with streaking of the medial as pect of the leg thigh. Positive lymphadenopathy to the right groin. Neurological Motor: normal tone, normal strength, moving all extremities equally Reflexes: deep tendon reflexes 2+ bilaterally, no clonus Psychiatric: good insight, good judgement, normal mood and affect Results Labs 11/18/22 06:06 11/18/22 06:06 Labs: Laboratory Results - last 24 hr 11/17/22 11/17/22 11/17/22 12:05 12:05 12:05 WBC 15.63 H RBC 4.80 Hgb 14.1 Hct 42.6 MCV 89 MCH 29.4 MCHC 33.1 RDW 13.0 Plt Count 230 MPV 10.7 Immature Gran % 0.4 Neutrophils % 86.3 Lymphocytes % 7.6 Monocytes % 5.0 Eosinophils % 0.4 Basophils % 0.3 Nucleated RBC % 0.0 Absolute Neutrophils 13.49 H Absolute Lymphocytes 1.19 L Absolute Monocytes 0.78 Absolute Eosinophils 0.06 Absolute Basophils 0.05 VBG Lactate 2.5 H* Sodium 138 Potassium 3.8 Chloride 103 Carbon Dioxide 24.1 Anion Gap 10.9 BUN 9 Creatinine 1.1 H Est GFR (CKD-EPI 2020) 60.08 Glucose 150 H Calcium 8.7 Magnesium 1.7 L Total Bilirubin 0.7 AST 16 ALT 31 Alkaline Phosphatase 92 Troponin I < 50 Total Protein 7.6 Albumin 3.4 Last Vital Signs Temp 37.1 C 11/17/22 14:07 Pulse 84 11/17/22 14:07 Resp 18 11/17/22 14:07 BP 115/84 11/17/22 14:07 Pulse Ox 96 11/17/22 14:07 PAWSS Have you Been Recently Intoxicated or Drunk Within the Last 30 days?: No Have you Ever Experienced Previous Episodes of Alcohol Withdrawal?: No Have you ever Experienced Withdrawal Seizures?: No Have you ever Experienced Delirium Tremens(DT)s?: No Have you ever undergone Alcohol Rehabilitation Treatment (i.e, inpt ot outpatient treatment programs)?: No Have you ever Experienced Blackouts?: No Have you ever Combined Alcohol with other Downers within the last 90 days?: No Have you ever Combined Alcohol with any other Substance of Abuse during the last 90 days?: No Result: 0 Time Spent Time spent with Patient: 40-54 minutes Time was spent: preparing to see the patient(eg.review tests), obtaining and/or reviewing separately otained hiistory, ordering medications,tests, procedures, referring, communicating with other health rn care manager, indepentently interpreting results and counseling the patient
[2022-11-17] MEDS: Enoxaparin 40 MG/0.4 ML SYR SC (16:15)
[2022-11-17] MEDS: Normal Saline Flush 10 ML SYR IVP ×2 (16:15→23:13)
[2022-11-17] MEDS: Ondansetron 4 MG/2 ML VIAL IVP (16:16)
[2022-11-17] MEDS: Ketorolac 30 MG/ML VIAL IVP (16:16)
[2022-11-17 16:35] LABS: Bilirubin Negative (Negative); Blood Trace-intact (Negative); Clarity Clear (Clear); Glucose Negative (Negative); Ketones Negative (Negative); Leukocyte Esterase Negative (Negative); Nitrite Negative (Negative); Urobilinogen 0.2 mg/dL (Up to 0.2)
[2022-11-17 16:49] LABS: Bacteria Few HPF (Negative); C & S Indicated? No; Casts Negative LPF (Negative); Crystals Negative HPF (Negative); Epithelial Cells Few HPF (Negative); Mucus Negative (Negative); Other Cells Negative (Negative); RBC 0-2 HPF (0-2); WBC 0-2 HPF (0-5)
[2022-11-17] MEDS: Lactated Ringers 500 ML IV (17:45)
[2022-11-17] MEDS: HYDROmorphone 2 MG/ML SYR 1 MG IVP ×2 (18:28→22:47)
[2022-11-17] MEDS: hydrOXYzine HCL 25 MG TAB PO (20:29)
[2022-11-17] MEDS: Magnesium Oxide 400 MG TAB PO (20:29)
[2022-11-17] MEDS: Mupirocin 2% Oint. 22 GM TUBE TP (20:30)
[2022-11-17] MEDS: Lactated Ringers 1,000 ML 125 ML IV (20:30)
[2022-11-17] MEDS: Atorvastatin 40 MG TAB PO (22:47)
[2022-11-17] MEDS: Ketorolac 15 MG/ML VIAL IVP (22:47)
[2022-11-18] VITALS (7 sets, daily range): BP systolic 100–152; BP diastolic 57–92; PULSE 68–85; RESP 14–16; TEMP 36.8–38.1; O2SAT 90–95
[2022-11-18] MEDS: Lactated Ringers 1,000 ML 125 ML IV ×2 (04:33→15:04)
[2022-11-18] MEDS: Normal Saline Flush 10 ML SYR IVP ×3 (04:34→18:30)
[2022-11-18] MEDS: Ketorolac 15 MG/ML VIAL IVP ×3 (04:34→18:29)
[2022-11-18] MEDS: Acetaminophen 325 MG TAB PO ×3 (06:33→16:11)
[2022-11-18 07:01] LABS: Abs Immature Grans 0.03 10^3/uL (0.0-0.06); Absolute Basophil Count 0.05 10^3/uL (0.0-0.2); Absolute Eosinophil Count 0.27 10^3/uL (0.0-0.7); Absolute Lymphocyte Count 1.51 10^3/uL (1.2-3.4); Absolute Monocyte Count 0.62 10^3/uL (0.1-0.8); Absolute Neutrophil Count 6.88 10^3/uL (1.2-6.7); Basophils % 0.5; Eosinophils % 2.9; HCT 37.9 % (36.0-46.0); HGB 12.5 g/dL (11.2-15.7); Immature Grans % 0.3; Lymphocytes % 16.1; MCH 29.9 pg (27.0-33.0); MCV 91 fL (80-95); MPV 11.3 fL (8.0-11.0); Monocytes % 6.6; Neutrophils % 73.6; Platelet Count 185 10^3/uL (130-400); RBC 4.18 10^6/uL (3.93-5.22); RDW 13.2 % (11.7-14.6); RDW-SD 43.8 fL; WBC 9.36 10^3/uL (4.4-10.8)
[2022-11-18 07:27] LABS: ALT 24 U/L (14-59); AST 13 U/L (15-37); Albumin 2.7 g/dL (3.4-5.0); Alkaline Phosphatase 75 U/L (46-116); BUN 10 mg/dL (7-18); Bilirubin, Total 0.6 mg/dL (0.2-1.0); CREATININE 0.8 mg/dL (0.55-1.02); Calcium 8.3 mg/dL (8.5-10.1); Chloride 108 mmol/L (98-107); Estimated GFR 88.05 (mL/min/1.73m2); Glucose 116 mg/dL (74-106); Potassium 3.9 mmol/L (3.5-5.1); Sodium 142 mmol/L (136-145); Total Protein 6.3 g/dL (6.4-8.2)
[2022-11-18] MEDS: amLODIPine 5 MG TAB PO (08:54)
[2022-11-18] MEDS: Magnesium Oxide 400 MG TAB PO ×2 (08:54→20:55)
[2022-11-18] MEDS: Mupirocin 2% Oint. 22 GM TUBE TP ×3 (08:55→20:56)
[2022-11-18 09:26] LABS: Lab Add On Test DONE
[2022-11-18 09:35] LABS: C-Reactive Protein 7.13 mg/dL (0.0-0.3)
[2022-11-18] MEDS: cefTRIAXone 2 GM/50 ML BAG IVPB (11:48)
[2022-11-18 13:02] LABS: HCG Qual (Urine) Negative
[2022-11-18] MEDS: VANCOMYCIN/WATER (PEG) 1.5 GM/300 ML BAG IVPB (13:05)
[2022-11-18] MEDS: Enoxaparin 40 MG/0.4 ML SYR SC (16:12)
--- NOTE | 2022-11-18 16:25 | INITIAL_ITS ---
Date of service: 11/18/22 Time of Service: 16:26 Care Management Initial Assmt Initial Assessment REASON FOR HOSPITALIZATION:: Cellulitis Right ankle PREVIOUS FUNCTIONAL STATUS/SOCIAL/FAMILY SUPPORTS:: Resides in [place] with , independent at baseline in the community. ADVANCE DIRECTIVES:: None on file. Has patient been provided with info about the portal/API?: Yes Did the patient sign up for the portal?: Yes CODE STATUS:: Full Code INSURANCE COVERAGE / FINANCIAL ISSUES:: BC/BS CURRENT HOME/COMMUNITY SERVICES/EQUIPMENT:: None PRIMARY CARE PHYSICIAN:: Mary Wheatley POTENTIAL DISCHARGE NEEDS:: Anticipate new oral antibiotic upon discharge, per MD. PATIENT/FAMILY EDUCATION NEEDS:: Review discharge instructions, discuss Ask Me Three. ANTICIPATED BARRIERS TO DISCHARGE:: None identified. TRANSPORTATION:: Via private vehicle with family. PLAN:: Kiana will return home when ready per MD, anticipate new oral abx course upon discharge. She will follow up with her PCP and plan of care as prescribed and transport via private vehicle with family. PFSH All Active Problems (Updated 11/17/22 @ 16:55 by Eli Hernadez NP) Hypomagnesemia (Acute) Discharge planning issues (Acute) DVT prophylaxis (Acute) Cellulitis of right ankle (Acute) Hiatal hernia with GERD (Acute) Inflammatory polyps of colon (Acute) large. repeat in 5 yrs Constipation (Acute) resolved w/ stopping CE Abdominal bloating (Acute) resolved w/ stopping HCTZ Medical History Abnormal weight gain Hot flashes Interstitial cystitis Mixed anxiety and depressive disorder Neuropathy Perimenopausal Plantar wart, left foot Surgical History History of cervical discectomy History of colonoscopy with polypectomy (~08/25/21) History of esophagogastroduodenoscopy (EGD) (~08/25/21) History of tonsillectomy and adenoidectomy Social History Smoking/Tobacco Use Status: Never Smoking risk assessment performed?: Yes Alcohol Intake: current Alcohol Intake frequency: holidays/special occasions only Drug use: Never Substance use type: does not use Do you feel safe at home: Yes Do you feel safe in your relationship?: Yes
--- NOTE | 2022-11-18 18:19 | W.PM.PROGNOT ---
Date of Service Date of service: 11/18/22 Time of Service: 18:19 Assessment and Plan Assessment and plan (1) Cellulitis of right ankle: Status: Acute Assessment and plan: Cellulitis of the right ankle, red, warm, swollen, small open area about 1 cm, scabbed, erythema is receeding, about 1 cm circumferential Continue Ceftriaxone and vanco BC pending WBC down to 9.36 trend Fever - treat with tylenol Pain - Ketorolac for moderate pain, hydromorphone for severe pain Elevate, cool compresses Murpirocin to open areas w dsd (2) Hypomagnesemia: Status: Acute Assessment and plan: Mag 2.0 - continue to follow (3) DVT prophylaxis: Status: Acute Assessment and plan: Enoxaparin 40 mg daily (4) Discharge planning issues: Status: Acute Assessment and plan: Home with oral abx when improved and stable Discussed with Dr Mata Subjective Subjective Patient reports: no new complaints, pain is less, tolerating a regular diet, voiding w/o difficulty, bowel movement and fever; denies diarrhea, nausea or vomiting Interval history since last seen: Kiana is feeling better today, however continues to have fever and pain in right thigh, groin area. Her right foot is still erythematous and warm, but receeding. Exam Narrative Exam Narrative: General: A,A Ox3, Calm, no apparent distress, well developed, pleasant and cooperative Head Size/Shape: normocephalic, atraumatic Eyes Pupils: PERRLA Extraocular Mobility: intact and symmetrical Conjunctiva: non-injected, anicteric, no discharge Ears, Nose, Throat Nares: patent bilaterally Oral Cavity: moist Respiratory Effort: no dyspnea Auscultation: clear to auscultation bilaterally, normal breath sounds, no wheezing, no rales/crackles Heart Auscultation: regular rate and rhythm, normal S1, normal S2, no murmurs, no rubs, no gallops, Normal cap refill Abdomen Inspection and Palpation: soft, non-tender, non-distended, no hepatosplenomegaly Musculoskeletal System Joints, Bones, and Muscles: no deformities Extremities: warm and well-perfused, no cyanosis, capillary refill <2 seconds Skin Skin Inspection: Right lower extremity, positive erythematous area overlying the lateral aspect of the right ankle with streaking of the medial aspect of the leg thigh, less today than yesterday. Positive lymphadenopathy to the right groin. Neurological Motor: normal tone, normal strength, moving all extremities equally Reflexes: deep tendon reflexes 2+ bilaterally, no clonus Psychiatric: good insight, good judgement, normal mood and affect Objective Last Vital Signs Temp 37.3 C 11/18/22 15:08 Pulse 68 11/18/22 15:08 Resp 16 11/18/22 15:08 BP 109/60 11/18/22 15:08 Pulse Ox 93 11/18/22 15:08 Laboratory Results - last 24 hr 11/18/22 11/18/22 11/18/22 06:06 06:06 06:06 WBC 9.36 RBC 4.18 Hgb 12.5 Hct 37.9 MCV 91 MCH 29.9 MCHC 33.0 RDW 13.2 Plt Count 185 MPV 11.3 H Immature Gran % 0.3 Neutrophils % 73.6 Lymphocytes % 16.1 Monocytes % 6.6 Eosinophils % 2.9 Basophils % 0.5 Nucleated RBC % 0.0 Absolute Neutrophils 6.88 H Absolute Lymphocytes 1.51 Absolute Monocytes 0.62 Absolute Eosinophils 0.27 Absolute Basophils 0.05 Sodium 142 Potassium 3.9 Chloride 108 H Carbon Dioxide 27.0 Anion Gap 7.0 BUN 10 Creatinine 0.8 Est GFR (CKD-EPI 2020) 88.05 Glucose 116 H Calcium 8.3 L Magnesium 2.0 Total Bilirubin 0.6 AST 13 L ALT 24 Alkaline Phosphatase 75 C-Reactive Protein Total Protein 6.3 L Albumin 2.7 L Urine HCG, Qual Add-On Test Request DONE 11/18/22 11/18/22 06:06 12:45 WBC RBC Hgb Hct MCV MCH MCHC RDW Plt Count MPV Immature Gran % Neutrophils % Lymphocytes % Monocytes % Eosinophils % Basophils % Nucleated RBC % Absolute Neutrophils Absolute Lymphocytes Absolute Monocytes Absolute Eosinophils Absolute Basophils Sodium Potassium Chloride Carbon Dioxide Anion Gap BUN Creatinine Est GFR (CKD-EPI 2020) Glucose Calcium Magnesium Total Bilirubin AST ALT Alkaline Phosphatase C-Reactive Protein 7.13 H Total Protein Albumin Urine HCG, Qual Negative Add-On Test Request PAWSS Have you Been Recently Intoxicated or Drunk Within the Last 30 days?: No Have you Ever Experienced Previous Episodes of Alcohol Withdrawal?: No Have you ever Experienced Withdrawal Seizures?: No Have you ever Experienced Delirium Tremens(DT)s?: No Have you ever undergone Alcohol Rehabilitation Treatment (i.e, inpt ot outpatient treatment programs)?: No Have you ever Experienced Blackouts?: No Have you ever Combined Alcohol with other Downers within the last 90 days?: No Have you ever Combined Alcohol with any other Substance of Abuse during the last 90 days?: No Result: 0 Time Spent with Patient Time Spent with Patient: 25-34 minutes Time was spent: preparing to see the patient(eg.review tests), ordering medications,tests, procedures, referring, communicating with other health child day care provider, indepentently interpreting results, counseling the patient and care coordination
[2022-11-18] MEDS: HYDROmorphone 2 MG/ML SYR 1 MG IVP (18:29)
[2022-11-18] MEDS: Atorvastatin 40 MG TAB PO (20:55)
[2022-11-18] MEDS: hydrOXYzine HCL 25 MG TAB PO (20:55)
[2022-11-19 00:19] VITALS: BP 135/72; PULSE 85; RESP 16; TEMP 37.4; O2SAT 96
[2022-11-19] MEDS: Ketorolac 15 MG/ML VIAL IVP ×2 (01:13→06:09)
[2022-11-19] MEDS: VANCOMYCIN/WATER (PEG) 1.25 GM/250 ML BAG IVPB (01:14)
[2022-11-19] MEDS: hydrOXYzine HCL 25 MG TAB PO (06:09)
[2022-11-19 06:59] LABS: Abs Immature Grans 0.02 10^3/uL (0.0-0.06); Absolute Basophil Count 0.04 10^3/uL (0.0-0.2); Absolute Eosinophil Count 0.36 10^3/uL (0.0-0.7); Absolute Lymphocyte Count 1.94 10^3/uL (1.2-3.4); Absolute Monocyte Count 0.41 10^3/uL (0.1-0.8); Absolute Neutrophil Count 5.32 10^3/uL (1.2-6.7); Basophils % 0.5; Eosinophils % 4.4; HCT 38.9 % (36.0-46.0); HGB 12.9 g/dL (11.2-15.7); Immature Grans % 0.2; MCH 29.6 pg (27.0-33.0); MCHC 33.2 % (32.0-36.0); MCV 89 fL (80-95); Monocytes % 5.1; Neutrophils % 65.8; Platelet Count 207 10^3/uL (130-400); RBC 4.36 10^6/uL (3.93-5.22); RDW 12.9 % (11.7-14.6); RDW-SD 42.3 fL; WBC 8.09 10^3/uL (4.4-10.8)
[2022-11-19 07:13] LABS: Anion Gap 9.4 mmol/L (3-11); BUN 8 mg/dL (7-18); C-Reactive Protein 5.13 mg/dL (0.0-0.3); CO2 26.6 mmol/L (21.0-32.0); CREATININE 0.8 mg/dL (0.55-1.02); Calcium 8.6 mg/dL (8.5-10.1); Chloride 105 mmol/L (98-107); Estimated GFR 88.05 (mL/min/1.73m2); Glucose 113 mg/dL (74-106); Magnesium 2.1 mg/dL (1.8-2.4); Potassium 3.8 mmol/L (3.5-5.1); Sodium 141 mmol/L (136-145)
[2022-11-19 07:41] LABS: Procalcitonin < 0.1 ng/mL
[2022-11-19 07:52] VITALS: BP 136/79; PULSE 71; RESP 17; TEMP 37.3; O2SAT 95
[2022-11-19] MEDS: amLODIPine 5 MG TAB PO (09:53)
[2022-11-19] MEDS: Magnesium Oxide 400 MG TAB PO (09:54)
[2022-11-19] MEDS: Mupirocin 2% Oint. 22 GM TUBE TP (09:54)
[2022-11-19] MEDS: cefTRIAXone 2 GM/50 ML BAG IVPB (09:58)
[2022-11-19 11:20] VITALS: BP 133/80; PULSE 70; RESP 17; TEMP 37.1; O2SAT 95
--- NOTE | 2022-11-19 11:28 | PDOC.CMDIS ---
Date of service: 11/19/22 Time of Service: 11:29 LACE Index Scoring Tool Questions: Length of Stay (in days): 2 Was the patient admitted via the E.D.?: Yes E.D. Visits: 3 Answers: Total Score: 8 Risk of Readmission: Low Risk Care Management Discharge Plan Reason for Hospitalization: Cellulitis Right ankle Discharge Plan: Melanie is discharged home via private vehicle with family. She will follow up with outpatient providers and discharge plan of care as prescribe. No VNA services are ordered prior to discharge. Patient/Family Education Needs: Review discharge instructions, limitations, medications and plan to follow up with outpatient providers. Discuss ask me three.
--- NOTE | 2022-11-19 12:25 | DSE_ITS ---
Date of service: 11/19/22 Time of Service: 12:26 DS: Diagnosis Discharge Diagnosis (1) Cellulitis of right ankle: Status: Acute (2) Hypomagnesemia: Status: Acute (3) DVT prophylaxis: Status: Acute (4) Discharge planning issues: Status: Acute Discharge Plan Disposition Patient Disposition: Home Condition: Improving Discharge Details Reason For Visit: Cellulitis Right Ankle Admit Date/Time: 11/17/22 12:30 Admit Provider: Isaias Mata Attending Provider: Isaias Mata Primary Care Provider: Mary Wheatley [facility] Hospital Course Hospital Course: This is a 52-year female patient with past medical history of who presented to the [facility] emergency room for complaint of right ankle pain, redness and swelling. She stated she was working in the garden last week and sustained what she th ought may have been an insect bite.? She had some small blisters on both anterior medial ankles.? She scratched them vigorously.? Some small blisters became quite small craters.? As of 2 days ago she noticed some redness and pain surrounding the right ankle lesion.? She now has of the lower right leg groin and tendon tenderness in the right inguinal area.? She reported feeling nauseous earlier today.? No quantified fevers nor chills.? Positive malaise and fatigue.? WBC 15.63, Creatinine 1.1, glucose 150, magnexium 1.7.? She was admitted to the medical floor for IV antibiotics, further testing and treatment.? She is a full code. Her WBC decreased. Blood cultures are negative. Her groin has less pain and nodes are smaller in size. She is discharged home with cephalexin 500 mg four times a day for 7 days, Ketorolac for moderate pain and hydrocodone/acetaminophen for severe pain. Recommend applying mupirocin to the sores on both ankles. Encouraged to take a probiotic. Magnesium was a little low, recommend a daily supplement. ? Home Meds and New Rx's Prescriptions: New mupirocin 2 % Ointment 0 g topical TID Qty: 0 0RF cephalexin 500 mg tablet 500 mg PO QID Qty: 28 0RF ketorolac 10 mg tablet 10 mg PO Q8H PRN5 Days Qty: 15 0RF hydrocodone-acetaminophen 5-300 mg tablet 1 tab PO Q6H PRNQty: 20 0RF magnesium chloride 64 mg tablet,delayed release (DR/EC) 64 mg PO DAILY Qty: 30 0RF Continued magnesium oxide 400 mg magnesium capsule 400 mg PO BID [id number] Tablet 1 tab PO DAILY diazepam [Valium] 5 mg tablet 5 mg PO TID PRNQty: 10 0RF atorvastatin 40 mg tablet 40 mg PO QHS Patient Comments: TAKE 1 TABLET BY MOUTH EVERY EVENING amlodipine 5 mg tablet 5 mg PO DAILY Patient Comments: TAKE 1 TABLET BY MOUTH EVERY DAY Discharge Instructions Instructions: Cephalexin (By mouth), Mupirocin (On the skin), Hydrocodone/Acetaminophen (By mouth), Ketorolac (By mouth), Hypomagnesemia (DC) Additional Instructions: Take Cephalexin until course is completed. Take Ketorolac for moderate pain. Take Hydrocodone/Acetaminophen for severe pain. Apply mupirocin ointment to open wounds 3-4 times a day, cover with a dry dressing (bandaid is ok). Take a probiotic of choice. Your magnesium was a little low in the hospital, recommend a daily supplement. Stand Alone Forms: Nursing Discharge Form Referrals: Mary Wheatley MD [Primary Care Provider] - 11/30/22 10:30 am Activity:: Activity as Tolerated Equipment/Supplies:: No Equipment Needed Diet:: As Tolerated Discharge Orders Discharge Orders: Discharge Order (Routine); Ordered 11/19/22 Ordered By: Eli Hernadez Discharge Data Discharge Date/Time-TO BE ENTERED AT DEPARTURE: 11/19/22 12:42 DS: Summary Time Spent with Patient providing and/or coordinating discharge services: Greater than 30 minutes Status at Discharge Functional status at discharge: independent ambulation Overall status at discharge: patient is back to baseline Mental Status: mental status grossly normal Speech and Movement: speech and movement normal Mood: congruent mood Affect: normal affect Exam Narrative Exam Narrative: General: A,A Ox3, Calm, no apparent distress, well developed, pleasant and cooperative Head Size/Shape: normocephalic, atraumatic Eyes Pupils: PERRLA Extraocular Mobility: intact and symmetrical Conjunctiva: non-injected, anicteric, no discharge Ears, Nose, Throat Nares: patent bilaterally Oral Cavity: moist Respiratory Effort: no dyspnea Auscultation: clear to auscultation bilaterally, normal breath sounds, no wheezing, no rales/crackles Heart Auscultation: regular rate and rhythm, normal S1, normal S2, no murmurs, no rubs, no gallops, Normal cap refill Abdomen Inspection and Palpation: soft, non-tender, non-distended, no hepatosplenomegaly Musculoskeletal System Joints, Bones, and Muscles: no deformities Extremities: warm and well-perfused, no cyanosis, capillary refill <2 seconds Skin Skin Inspection: Right lower extremity, positive erythematous area overlying the lateral aspect of the right ankle with decreased streaking of the medial aspect of the thigh. Positive lymphadenopathy to the right groin. Neurological Motor: normal tone, normal strength, moving all extremities equally Reflexes: deep tendon reflexes 2+ bilaterally, no clonus Psychiatric: good insight, good judgment, normal mood and affect Psych Mental Status: mental status grossly normal Speech and Movement: speech and movement normal Mood: congruent mood Affect: normal affect DS: Data Vitals/I&O Vitals and I&O: Vital Signs Temperature 37.1 C 11/19/22 11:20 Temperature Source Tympanic 11/19/22 11:20 Pulse 70 11/19/22 11:20 Pulse Rhythm Regular 11/19/22 10:09 Respiratory Rate 17 11/19/22 11:20 Respiratory Effort Normal, Non-Labored 11/19/22 10:09 Respiratory Depth Normal 11/19/22 10:09 Respiratory Pattern Normal 11/19/22 10:09 Blood Pressure 133/80 11/19/22 11:20 Blood Pressure Position Sitting 11/17/22 11:34 Pulse Oximetry 95 11/19/22 11:20 Oxygen Delivery Method Room Air 11/19/22 11:20 Oxygen Flow Rate 0 11/19/22 11:20 Pain Level 3 11/19/22 11:20 Intake & Output 11/18/22 11/19/22 11/19/22 23:59 11:59 23:59 Intake Total 2830 / 4310 250 / 250 Output Total 2250 / 3750 Balance 580 / 560 250 / 250 Intake: IV 2350 / 3350 250 / 250 Oral 480 / 960 Output: Urine 2250 / 3750 Other: Urine Color Yellow Urine Appearance Clear Urine Odor Normal Stool Size Moderate Stool Characteristics Soft Formed Voiding Methods Toilet Data Completed and Pending Labs on day of discharge: Labs from last 24 hours 11/19/22 11/19/2223 06:00 06:00 06:00 WBC 8.09 RBC 4.36 Hgb 12.9 Hct 38.9 MCV 89 MCH 29.6 MCHC 33.2 RDW 12.9 Plt Count 207 MPV 12.0 H Immature Gran % 0.2 Neutrophils % 65.8 Lymphocytes % 24.0 Monocytes % 5.1 Eosinophils % 4.4 Basophils % 0.5 Nucleated RBC % 0.0 Absolute Neutrophils 5.32 Absolute Lymphocytes 1.94 Absolute Monocytes 0.41 Absolute Eosinophils 0.36 Absolute Basophils 0.04 Sodium 141 Potassium 3.8 Chloride 105 Carbon Dioxide 26.6 Anion Gap 9.4 BUN 8 Creatinine 0.8 Est GFR (CKD-EPI 2020) 88.05 Glucose 113 H Calcium 8.6 Magnesium 2.1 C-Reactive Protein 5.13 H Procalcitonin < 0.1 Urine HCG, Qual 11/18/22 12:45 WBC RBC Hgb Hct MCV MCH MCHC RDW Plt Count MPV Immature Gran % Neutrophils % Lymphocytes % Monocytes % Eosinophils % Basophils % Nucleated RBC % Absolute Neutrophils Absolute Lymphocytes Absolute Monocytes Absolute Eosinophils Absolute Basophils Sodium Potassium Chloride Carbon Dioxide Anion Gap BUN Creatinine Est GFR (CKD-EPI 2020) Glucose Calcium Magnesium C-Reactive Protein Procalcitonin Urine HCG, Qual Negative Preliminary micro results at discharge 11/17/22 12:05 Blood Culture - Preliminary Blood NO GROWTH 24 HOURS 11/17/22 12:10 Blood Culture - Preliminary Blood NO GROWTH 24 HOURS PFSH All Active Problems (Updated 11/17/22 @ 16:55 by Eli Hernadez NP) Hypomagnesemia (Acute) Discharge planning issues (Acute) DVT prophylaxis (Acute) Cellulitis of right ankle (Acute) Hiatal hernia with GERD (Acute) Inflammatory polyps of colon (Acute) large. repeat in 5 yrs Constipation (Acute) resolved w/ stopping CE Abdominal bloating (Acute) resolved w/ stopping HCTZ Medical History Abnormal weight gain Hot flashes Interstitial cystitis Mixed anxiety and depressive disorder Neuropathy Perimenopausal Plantar wart, left foot Surgical History History of cervical discectomy History of colonoscopy with polypectomy (~08/25/21) History of esophagogastroduodenoscopy (EGD) (~08/25/21) History of tonsillectomy and adenoidectomy Social History Smoking/Tobacco Use Status: Never Smoking risk assessment performed?: Yes Alcohol Intake: current Alcohol Intake frequency: holidays/special occasions only Drug use: Never Substance use type: does not use Do you feel safe at home: Yes Do you feel safe in your relationship?: Yes Time Spent with Patient Time Spent with Patient: 70-84 minutes4 Time was spent: preparing to see the patient(eg.review tests), ordering medications,tests, procedures, referring, communicating with other health healthcare social worker, indepentently interpreting results, counseling the patient and care coordination
== END 2022-11-19 12:42 | disposition home or self-care (01) ==
LOC: ER 12:45 → MS 14:21
PROVIDERS: Nurse Practitioner Family; Admitting Provider Family Medicine; Emergency Provider Emergency Medicine; PCP Family Medicine; Visit Provider Family Medicine
DX: L03.115 Cellulitis of right lower limb (principal); E83.42 Hypomagnesemia; K44.9 Diaphragmatic hernia without obstruction or gangrene; K21.9 Gastro-esophageal reflux disease without esophagitis; F41.8 Other specified anxiety disorders; G62.9 Polyneuropathy, unspecified
CPT/HCPCS: 36415; 80048; 80053; 84145; 87040; 87081; 96365; 96366; 96375; 96376; 99285; J1650; 81003; 81015; 81025; 83605; 83735; 84484; 85025; 86140; 99222; 99232; 99239; G0378; J0131; J0696; J1170; J1885; J2405

== ENCOUNTER 2024-04-27 13:46 | Emergency (ER) | payer BC, SELFPAY ==
--- NOTE | 2024-04-27 13:45 | RT.EKG_ITS ---
APPROVED REPORT Exam: Resting ECG Reason for Exam: palpatations Patient Location: E HR:87 bpm ECG Measurements Heart Rate 87 AXIS TX 166 P 46 QRSd 98 QRS 96 QT 374 T 54 QTc 450 Conclusion Sinus rhythm...normal P axis, V-rate 60- 99 I have reviewed and interpreted ECG and agree with software generated interpretation.
[2024-04-27 13:51] VITALS: BP 165/86; PULSE 87; RESP 16; TEMP 36.6; O2SAT 94
--- NOTE | 2024-04-27 14:33 | W.ED.GENAD ---
Discharge Plan Disposition Patient Disposition: Home Condition: Stable Discharge Details Clinical Impression: Dizziness, Sinusitis Primary Care Provider: Mary Wheatley ED Provider: Richard Landaverde Home Meds and New Rx's Prescriptions: New doxycycline hyclate 100 mg tablet 100 mg PO BID Qty: 20 0RF Continued metoprolol succinate 25 mg tablet extended release 24 hr 25 mg PO DAILY Patient Comments: TAKE 1 TABLET BY MOUTH EVERY DAY FOR BLOOD PRESSURE Discontinued magnesium oxide 400 mg magnesium capsule 400 mg PO BID [id number] Tablet 1 tab PO DAILY diazepam [Valium] 5 mg tablet 5 mg PO TID PRNQty: 10 0RF atorvastatin 40 mg tablet 40 mg PO QHS Patient Comments: TAKE 1 TABLET BY MOUTH EVERY EVENING amlodipine 5 mg tablet 5 mg PO DAILY Patient Comments: TAKE 1 TABLET BY MOUTH EVERY DAY mupirocin 2 % Ointment 0 g topical TID Qty: 0 0RF cephalexin 500 mg tablet 500 mg PO QID Qty: 28 0RF hydrocodone-acetaminophen 5-300 mg tablet 1 tab PO Q6H PRNQty: 20 0RF magnesium chloride 64 mg tablet,delayed release (DR/EC) 64 mg PO DAILY Qty: 30 0RF Discharge Instructions Additional Instructions: Your labs and imaging did not show any concerning findings at this time Follow-up with your primary care provider if not improving within a week If you feel more ill, have new symptoms such as persistent vomiting or difficulty breathing return to the emergency department for reevaluation HPI General Mode of arrival: ambulatory. Date/Time Provider Initiated Documentation: 04/27/24 13:53. Limitations to Documentation: no limitations. Information obtained by: patient. History of Present Illness 53 year old F presents to the emergency department with the chief complaint of sinus pressure, congestion, described as moderate, Patient started experiencing this week(s) (1) and it has been constant. No relieving factors improve symptom(s), No exacerbating factors reported . Patient notes chest pain and other (headaches); denies fever/chills and nausea/vomiting. Patient did receive the following treatments prior to arrival, none Related Data Home Medications ?Medication ?Instructions ?Recorded ?Confirmed doxycycline hyclate 100 mg tablet 100 mg PO BID #20 tabs 04/27/24 metoprolol succinate 25 mg 25 mg PO DAILY 04/27/24 04/27/24 tablet,extended release 24 hr Previous Rx's ?Medication ?Instructions ?Recorded doxycycline hyclate 100 mg tablet 100 mg PO BID #20 tabs 04/27/24 Allergies Allergy/AdvReac Type Severity Reaction Status Date / Time lisinopril Allergy Severe angioedema Verified 11/17/22 11:40 phenazopyridine (From Allergy Severe unknown Verified 11/17/22 11:40 Pyridium) hydrochlorothiazide Allergy Intermediate Trigger Verified 11/17/22 11:40 finger, joint pain, mirabegron (From Myrbetriq) Allergy Intermediate unknown Verified 11/17/22 11:40 gabapentin (From Neurontin) Allergy Mild unknown Verified 11/17/22 11:40 penicillin V Allergy Mild unknown Verified 11/17/22 11:40 pregabalin (From Lyrica) Allergy Mild unknown Verified 11/17/22 11:40 General Stated Complaint: GenMedical DEREK: 3 Review of Systems All systems reviewed & are unremarkable except as noted in HPI and below Constitutional Constitutional: Denies chills, Denies fever(s) and Denies weakness ENT Ears, Nose, Mouth, and Throat: Reports sinus pain and Denies sore throat Cardiovascular Cardiovascular: Reports chest pain and Reports dyspnea Respiratory Respiratory: Denies cough and Reports dyspnea Gastrointestinal Gastrointestinal: Denies abdominal pain, Denies nausea and Denies vomiting Integumentary/Breasts Skin/Breast: Denies rash Neurologic Neurologic: Denies weakness Exam Const General: no acute distress Orientation: alert HENMO Head: normal to inspection Ears: external ears normal General nose exam: external nose normal Mouth: moist mucous membranes Eyes General: appearance normal, both eyes and all related structures Neck Neck: normal visual inspection Resp Effort & Inspection: normal respiratory effort and able to speak in complete sentences Auscultation: clear to auscultation bilaterally Cardio Jugular venous pressure: no JVD Rate: regular rate Heart Sounds: no murmurs GI Palpation: soft and nontender Skin General skin exam: no rashes or lesions noted Neuro General: patient alert and patient oriented x3 Extrem General: normal to inspection Psych Mental Status: mental status grossly normal Course Vital Signs Vital signs: Vital Signs Temperature 36.6 C 04/27/24 13:51 Pulse 87 04/27/24 13:51 Respiratory Rate 16 04/27/24 13:51 Blood Pressure 165/86 H 04/27/24 13:51 Pulse Oximetry 94 04/27/24 13:51 Temperature 36.6 C 04/27/24 13:51 Temperature Source Oral 04/27/24 13:51 Pulse 87 04/27/24 13:51 Respiratory Rate 16 04/27/24 13:51 Blood Pressure 165/86 H 04/27/24 13:51 Blood Pressure Position Sitting 04/27/24 13:51 Pulse Oximetry 94 04/27/24 13:51 Oxygen Delivery Method Room Air 04/27/24 13:51 Oxygen Flow Rate 0 04/27/24 13:51 Pain Level 4 04/27/24 13:51 Medical Decision Making 53-year-old female who has a history of hypertension who COVID with a week of frontal sinus fullness and pain and several days of chest tightness. Also noted intermittent dizziness similar to prior episodes of vertigo. She denies any vomiting, fevers, chills. She is speaking in full sentences in no distress on exam. She is ambulatory with a normal gait. She localizes the pain to the frontal and maxillary sinuses. Cranial nerves II through XII are intact. clear lung sounds, no JVD. Her symptoms seem most consistent with sinusitis versus viral illness but given her complaints of headache and sinus pain will obtain CT to evaluate for possible mass, no thunderclap description and is not the worst headache of her life so doubt subarachnoid hemorrhage. No fevers and she has no meningismus on exam so doubt [employer] infection. Her chest pain is likely pleurisy, will check troponins and screen for PE with D-dimer. No tearing back pain and equal peripheral pulses so doubt dissection. Labs including delta troponin negative and imaging unremarkable. Patient is stable. She is stable, given she had symptoms of sinusitis for a week I will initiate antibiotics, she has a penicillin allergy so we will start her on doxycycline. Her right TM is normal, her left ear canal is impacted with cerumen, will have nursing irrigate and if no concerning findings after this we will plan for discharge and follow-up with her PCP Differential Diagnosis Differential Diagnosis: Sinusitis, NSTEMI Lab Data Lab results reviewed: Yes I reviewed the patient's lab results. ECG Data Attestation: I personally reviewed and interpreted this ECG (s) as follows: Prior ECG tracings: available for review Interpretation: Sinus rhythm, rate of 69, right bundle, no significant changes from prior, no STEMI Quality:SDOH Health Related Social Needs: No Data to Display PFSH All Active Problems (Updated 04/27/24 @ 16:46 by Richard Landaverde MD) Sinusitis (Acute) Dizziness (Acute) Cellulitis of right ankle (Acute) Hiatal hernia with GERD (Acute) Inflammatory polyps of colon (Acute) large. repeat in 5 yrs Constipation (Acute) resolved w/ stopping CE Abdominal bloating (Acute) resolved w/ stopping HCTZ Medical History Abnormal weight gain Hot flashes Interstitial cystitis Mixed anxiety and depressive disorder Neuropathy Perimenopausal Plantar wart, left foot Surgical History History of cervical discectomy History of colonoscopy with polypectomy (~08/25/21) History of esophagogastroduodenoscopy (EGD) (~08/25/21) History of tonsillectomy and adenoidectomy Social History Smoking/Tobacco Use Status: Never Smoking risk assessment performed?: Yes Alcohol Intake: current Alcohol Intake frequency: holidays/special occasions only Drug use: Never Substance use type: does not use Housing: house Do you feel safe at home: Yes Do you feel safe in your relationship?: Yes
[2024-04-27 14:51] LABS: Abs Immature Grans 0.02 10^3/uL (0.0-0.06); Absolute Basophil Count 0.04 10^3/uL (0.0-0.2); Absolute Lymphocyte Count 2.55 10^3/uL (1.2-3.4); Absolute Monocyte Count 0.37 10^3/uL (0.1-0.8); Basophils % 0.5 %; Eosinophils % 1.1 %; HGB 15.7 g/dL (11.2-15.7); Immature Grans % 0.2 %; MCH 29.3 pg (27.0-33.0); MCHC 32.7 % (32.0-36.0); MCV 90 fL (80-95); MPV 10.3 fL (8.0-11.0); Monocytes % 4.2 %; Platelet Count 257 10^3/uL (130-400); RBC 5.35 10^6/uL (3.93-5.22); RDW 12.8 % (11.7-14.6); RDW-SD 42.4 fL; WBC 8.78 10^3/uL (4.4-10.8)
--- NOTE | 2024-04-27 15:10 | DI.CT_ITS ---
Exam(s) CT HEAD SINUS WO EXAM: CT HEAD SINUS WO CLINICAL HISTORY: headaches and sinus pressure. TECHNIQUE: Imaging Protocol: Axial computed tomography images with coronal and sagittal reformatted images were created and reviewed COMPARISON: No exams were available for comparison FINDINGS: Ventricles and Extra axial spaces: Normal in size and morphology for the patient's age. Hemorrhage: None. Cerebral parenchyma: No evidence of an acute territorial infarct. No mass effect. Midline shift: None. Brainstem/Cerebellum: Normal. Calvarium: Normal. Visualized Paranasal sinuses/Mastoids: There is a tiny mucous retention cyst in the left maxillary si nus. The visualized paranasal sinuses are otherwise clear. The mastoid air cells are clear. The na fei septum mildly deviates to the right. The turbinates are unremarkable as are the ostiomeatal comp lexes. Soft Tissues: Unremarkable. IMPRESSION: 1. No acute intracranial process. 2. Unremarkable sinuses. RADIATION DOSE DELIVERED: 868.6mGy.cm Total DLP DATA REPOSITORY: All CT scans at this facility are submitted to the National Radiology Data Registry (NRDR) Dose Index Registry (DIR) with the [employer] (ACR). RADIATION OPTIMIZATION: All CT scans at this facility use at least one of these dose optimization te chniques: automated exposure control; mA and/or kV adjustment per patient size (includes targeted exa ms where dose is matched to clinical indication); or iterative reconstruction.
[2024-04-27 15:22] LABS: ALT 28 U/L (14-59); AST 14 U/L (15-37); Albumin 3.7 g/dL (3.4-5.0); Alkaline Phosphatase 90 U/L (46-116); BUN 10 mg/dL (7-18); Calcium 8.8 mg/dL (8.5-10.1); Chloride 105 mmol/L (98-107); Estimated GFR 66.95 (mL/min/1.73m2); Glucose 128 mg/dL (74-106); Magnesium 2.1 mg/dL (1.8-2.4); Potassium 3.8 mmol/L (3.5-5.1); Sodium 142 mmol/L (136-145); TSH (W/Ref FT4) 1.21 uIU/mL (0.36-3.74); Total Protein 8.1 g/dL (6.4-8.2); Troponin I 5 ng/L (<or=51)
[2024-04-27 15:23] VITALS: BP 139/83; RESP 16; O2SAT 96
[2024-04-27 15:29] LABS: Procalcitonin < 0.10 ng/mL
[2024-04-27 15:37] LABS: COVID-19 PCR Negative (Negative); Influenza A PCR Negative (Negative); Influenza B PCR Negative (Negative); RSV PCR Negative (Negative)
[2024-04-27 15:39] LABS: Source Nasopharynx
[2024-04-27 16:27] LABS: Troponin I 6 ng/L (<or=51)
[2024-04-27] MEDS: Doxycycline Hyclate 100 MG CAP PO (16:55)
== END 2024-04-27 17:05 | disposition home or self-care (01) ==
PROVIDERS: Emergency Provider Emergency Medicine; PCP Family Medicine
DX: R42 Dizziness and giddiness (principal); H61.22 Impacted cerumen, left ear; J32.9 Chronic sinusitis, unspecified; I10 Essential (primary) hypertension
CPT/HCPCS: 36415; 69209; 80053; 84145; 87637; 93005; 99285; 70450; 70486; 83735; 84443; 84484; 85025; 93010; 99284

== ENCOUNTER 2025-03-22 12:52 | Outpatient (REF) | payer MEDICAID, SELFPAY ==
--- NOTE | 2025-03-22 11:00 | PAPFT_PTH ---
PATIENT: Kiana Dalton LOC: [facility]#:[id number] AGE/SX: 54/F ROOM: RE03/22/[address]: Mary Wheatley : 1970 BED: DIS: 03/22/2025 SPEC #: [id number] RECD: 03/22/25 18:01 STATUS: TRINI REStella #: [id number] LIBERTAD: 03/22/25 11:[address]: Mary Wheatley DEPT: [facility] Cytology RECD BY: Becca Stephens Tissues: 1 - CX/ENDOCX FOR PAP SMEARS Procedures: PAP THIN PREP/UVM Screening HPV DNA PROBE Comments: [id number] (HPV 16 & 18/45)
[2025-03-22 16:09] LABS: ALT 25 U/L (14-59); AST 18 U/L (15-37); Albumin 3.7 g/dL (3.4-5.0); Alkaline Phosphatase 73 U/L (46-116); Anion Gap 6.0 mmol/L (3-11); BUN 10 mg/dL (7-18); Bilirubin, Total 0.4 mg/dL (0.2-1.0); CO2 30.0 mmol/L (21.0-32.0); Calcium 9.3 mg/dL (8.5-10.1); Chloride 104 mmol/L (98-107); Glucose 86 mg/dL (74-106); Potassium 4.2 mmol/L (3.5-5.1); Sodium 140 mmol/L (136-145); Total Protein 8.2 g/dL (6.4-8.2)
== END 2025-03-22 12:53 | disposition home or self-care (01) ==
LOC: NCHCN 12:52
PROVIDERS: PCP Family Medicine; Visit Provider Family Medicine
DX: Z12.4 Encounter for screening for malignant neoplasm of cervix (principal)
CPT/HCPCS: 80053; 88142; 87624

== ENCOUNTER → 2025-04-26 03:56 | Outpatient (CLI) | payer SELFPAY ==
--- NOTE | 2025-04-26 12:16 | DI.MAMMO_ITS ---
Exam(s) MAMMO SCREENING EXAM: MAMMO SCREENING CLINICAL HISTORY: SCREENING,Z12.31. TECHNIQUE: Bilateral full field digital CC and MLO mammographic images were obtained with 3D tomosynthesis and utilizing computer aided detection (CAD). COMPARISON: Prior mammograms were reviewed. FINDINGS: There are no CAD designations. No new right breast findings. The previously described 12 o'clock position nodule in the left breast has significantly decreased in size, previously measuring 8-9 mm on the MLO view and presently measuring 3-4 mm on the MLO view. There are no new spiculated masses nor new malignant appearing microcalcification groups. There is no significant architectural distortion nor skin thickening-retraction. IMPRESSION: Benign finding. No radiographic evidence of malignancy. BI-RADS Category 2 - Benign Findings Breast Density - Category B - There are scattered areas of fibroglandular density. Breast density Category C or D implies that the patient has dense breast tissue. Dense breast tissue can make it harder to find cancer on a mammogram. Dense breast tissue is also associated with an increased risk of breast cancer. This information about the result of the mammogram report was provided to the patient to raise their awareness. Use this report when you speak with the patient about their risks for breast cancer, which includes their family history. At that time, you may recommend additional screening tests (Ultrasound or MRI) as these tests may add significant information. A negative radiographic report should not delay biopsy if a dominant or clinically suspicious mass is present. Up to ten percent of cancers are not identified on mammography. A negative report may reinforce clinical impression. Adenosis and dense breasts may obscure an underlying neoplasm. False positive reports average 6 to 10%. Patient will receive a letter notifying them of these results.
== END ==
PROVIDERS: PCP Family Medicine; Visit Provider Family Medicine
DX: Z12.31 Encounter for screening mammogram for malignant neoplasm of breast (principal)
CPT/HCPCS: 77063; 77067